=== PATIENT | female | born 1970 | race Caucasian/White ===

== ENCOUNTER 2019-09-04 09:47 | Outpatient (CLI) | payer MEDICARE, MEDICAID, SELFPAY ==
--- NOTE | 2019-09-04 | US_ITS ---
WS: [id number] Complete ABDOMINAL ULTRASOUND HISTORY: LUQ ABDOMINAL PAIN COMPARISON: 07/12/2017 Liver: 22 cm in length. Liver significantly enlarged with diffuse coarsened echotexture and attenuati on. No bile duct dilatation. Gallbladder: Prior cholecystectomy. Pancreas: Poorly visualized. CBD: Not visualized. Right kidney: 8.5 cm x 4.6 cm x 4.3 cm. Atrophic kidney. Diffuse cortical thinning with no hydroneph rosis or mass. Left kidney: 9.3 cm x 4.0 cm x 3.7 cm. Mild atrophy and diffuse cortical thinning. Spleen: Normal size and echogenicity. Aorta and IVC are not visualized. No ascites. US/US abdomen complete* [id number] IMPRESSION: 1. Extremely limited evaluation of the abdomen. 2. Severe hepatomegaly and hepatic steatosis. 3. Prior cholecystectomy. 4. Mild bilateral renal atrophy and cortical thinning.
== END 2019-09-04 09:48 | disposition home or self-care (01) ==
PROVIDERS: Family Provider Family Medicine; PCP Family Medicine; Visit Provider Family Medicine
DX: Z01.89 Encounter for other specified special examinations (principal)

== ENCOUNTER 2019-09-14 06:36 | Emergency (ER) | payer MEDICARE, MEDICAID, SELFPAY ==
[2019-09-14] VITALS (8 sets, daily range): BP systolic 147–174; BP diastolic 76–104; PULSE 85–92; RESP 16–20; TEMP 37; O2SAT 99–100; BMI 35.6
--- NOTE | 2019-09-14 07:22 | ED_ITS ---
Entered by Haleigh Low, acting as scribe for Sep 14, 2019 06:36 HPI - Anxiety General: Chief Complaint: Anxiety Stated Complaint: cough, sob Time Seen by Provider: 09/14/19 07:01 Source: patient and family Mode of arrival: ambulatory Limitations: no limitations History of Present Illness: HPI narrative: 49 female who presents from nephrology clinic. Due to coronavirus precautions patient was going to be required to wear a mask while she was receiving a run of dialysis. She has severe claustrophobia and states she cannot wear a mask. She refused they sent her to the emergency room. She is wanting to be admitted so that she can have her dialysis done while she is at the hospital and not have to wear a mask she has had a bit of a cough but no fever cough is been nonproductive. She denies any sweats or chills denies any nausea vomiting or diarrhea. She has been a little short of breath as well. This been going on for the last couple of days. MD complaint: anxiety Onset (ago): day(s) Symptoms: dyspnea Quality: constant Place: home Associated symptoms: Reports short of breath and other (cough); Deny chest pain, chills, fever(s), malaise, nausea or vomiting Review of Systems General: Reports: 10 or more systems reviewed and unremarkable except in HPI and below Const: Denies: fever, chills, body aches, change in appetite, fatigue or malaise ENMT: Denies: throat pain, ear pain, nasal discharge or nasal congestion Card: Denies: chest pain, edema, shortness of breath on exertion or shortness of breath when lying down Resp: Reports: shortness of breath and productive cough GI: Denies: abdominal pain, nausea, vomiting, vomiting blood, coffee grounds in vomit, diarrhea, constipation, bloating, blood in stool or black tarry stool : Denies: flank pain, difficulty urinating, painful urination, urinary frequency or urinary urgency Skin/Breast: Denies: rash or itching PFSH ED PFSH: Social History Smoking and tobacco status: never smoked Physical Exam Const: COMMON NORMALS: no apparent distress GENERAL APPEARANCE: cooperative and comfortable ORIENTATION/CONSCIOUSNESS: Yes awake, Yes oriented to person, Yes oriented to place and Yes oriented to time HENMT: COMMON NORMALS: normocephalic, head/scalp atraumatic, hearing grossly normal bilaterally, external ears normal, EAC's normal, TM's normal bilaterally, nasal mucous membranes and turbinates normal, moist oral mucous membranes and oropharynx normal HEAD & SCALP: normocephalic and atraumatic NOSE: nasal mucous membranes and turbinates normal EXTERNAL EAR: Yes external ears normal EXTERNAL AUDITORY CANAL: EAC's normal TYMPANIC MEMBRANE: TM's normal bilaterally Eye: COMMON NORMALS: PERRL, EOMs intact bilaterally, conjunctivae normal and no scleral icterus CONJUNCTIVA: Yes conjunctivae normal PUPIL: Yes PERRL Neck/C-Spine: COMMON NORMALS: full ROM, no lymphadenopathy, supple and no JVD Lymph: LYMPHATIC: no lymphadenopathy noted and no lymphedema noted Cardio: COMMON NORMALS: no JVD, regular rate, regular rhythm and no murmurs RATE: regular rate RHYTHM: regular rhythm GI: COMMON NORMALS: soft to palpation and no hepatosplenomegaly AUSCULTATION: Yes normoactive bowel sounds PALPATION: Yes soft, No tender, No guarding and Yes no hepatosplenomegaly Extremity: COMMON NORMALS: normal to inspection, normal capillary refill, no clubbing, cyanosis or edema, no calf tenderness and no pedal edema Neuro: SENSORIUM/ORIENTATION: Yes oriented to person, Yes oriented to place and Yes oriented to time Skin: COMMON NORMALS: no rashes or lesions noted GENERAL SKIN EXAM: no rashes or lesions noted Course ED course: Chest x-ray is essentially unremarkable. The rest of her exam is normal she does probably have some viral upper respiratory infection. Treat symptomatically she respiratory casanova she has no compromise at this time does not require any sort of treatment or intervention. Do recommend that she use anxiety meds to get through her dialysis. Give her prescription for Ativan 1 mg p.o. every 8 hours as needed she should take about 1/2-hour prior to run of dialysis. Return to the dialysis clinic to complete today's dialysis run. Vital Signs: Vital signs: Vital Signs Temperature 98.6 F 09/14/19 07:00 Pulse Rate 86 09/14/19 09:11 Respiratory Rate 16 09/14/19 09:11 Blood Pressure 157/87 09/14/19 09:11 Pulse Oximetry 99 09/14/19 09:11 MDM - Anxiety Lab Data: Labs: Lab Results 09/14/19 09/14/1920 Range/Units 07:23 07:47 08:38 WBC 4.5 (4.0-10.0) 10^3/ uL RBC 3.18 L (4.1-5.3) 10^6/u L Hgb 10.4 L (11.5-15.3) g/dL Hct 33.3 L (37.0-47.0) % MCV 104.7 H (81-99) fL MCH 32.7 (28.0-34.0) pg MCHC 31.2 (30.0-36.0) g/dL RDW 13.6 (12.1-15.1) % Plt Count 179 (130-400) 10^3/c mm MPV 10.3 (7.4-10.4) fL Neut % (Auto) 48.0 % Lymph % (Auto) 37.4 % [place] % (Auto) 12.6 % Eos % (Auto) 0.2 % Baso % (Auto) 1.1 % Neut # (Auto) 2.2 (1.8-7.7) 10^3/u L Lymph # (Auto) 1.7 (0.8-4.8) 10^3/u L [place] # (Auto) 0.6 (0.2-0.9) 10^3/u L Eos # (Auto) 0.0 (0.0-0.8) 10^3/u L Baso # (Auto) 0.1 (0.0-0.1) 10^3/u L Nucleated RBC % (a uto) 0 % Nucleated RBCs # 0.0 /100WBC Sodium 139 (136-145) mmol/L Potassium 4.6 (3.5-5.1) mmol/L Chloride 101 (98-107) mmol/L Carbon Dioxide 24 (22-29) mmol/L Anion Gap 18.6 (5-19) BUN 20 (6-20) mg/dL Creatinine 4.2 H (0.5-0.9) mg/dL GFR Calculation 11.3 L (90-130) mL/min Glucose 109 (65-115) mg/dL Calculated Osmolal ity 285 (285-295) mOsm/k g Calcium 9.4 (8.5-10.5) mg/dL Influenza Type A A g Negative (Negative) POC Influenza B Ag Negative (Negative) Discharge Plan Discharge Patient Disposition: Home, Self-Care Clinical Impression: Viral URI, Anxiety, Claustrophobia Condition: Stable Prescriptions: No Action Valium 10 mg tablet 10 mg PO DAILY PRN (Reason: anxiety) Qty: 10 RF: 0 Discharge Orders: Discharge Order (Routine); Ordered 09/14/19 Ordered By: Papo Jenkins Referrals: Reese Griggs MD [Primary Care Provider] - Discharge Diet: Usual diet Discharge Activity: Resume usual activity Discharge Date/Time: 09/14/19 09:24 Coding Level of Care Code 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
--- NOTE | 2019-09-14 07:25 | XR_ITS ---
WS: [id number] Portable AP upright chest, 09/14/2019 Clinical Data: dyspnea/cough Comparison: Portable chest, 07/10/2018. Findings: No nodules, masses or effusions are seen. The heart is normal. The pulmonary vascularity is not increased. No pneumonia or pneumothorax is seen. XR/XR chest 1V portable [id number] Impression: Negative chest.
--- NOTE | 2019-09-14 07:29 | PC.NURSE ---
XR performed at bedside
[2019-09-14 08:00] LABS: Influenza A by IFA Negative (Negative); Influenza B by IFA Negative (Negative)
[2019-09-14 08:27] LABS: Anion Gap 18.6 (5-19); Blood Urea Nitrogen 20 mg/dL (6-20); Calcium 9.4 mg/dL (8.5-10.5); Carbon Dioxide 24 mmol/L (22-29); Chloride 101 mmol/L (98-107); Glomerular Filtration Rate 11.3 mL/min (90-130); Glucose 109 mg/dL (65-115); Osmolality Calculated 285 mOsm/kg (285-295); Potassium 4.6 mmol/L (3.5-5.1); Sodium 139 mmol/L (136-145)
[2019-09-14 08:44] LABS: Basophils # 0.1 10^3/uL (0.0-0.1); Basophils % 1.1 %; Eosinophils % 0.2 %; Hematocrit 33.3 % (37.0-47.0); Hemoglobin 10.4 g/dL (11.5-15.3); Lymphocytes # 1.7 10^3/uL (0.8-4.8); Lymphocytes % 37.4 %; Mean Corpuscular HGB Conc 31.2 g/dL (30.0-36.0); Mean Corpuscular Hemoglobin 32.7 pg (28.0-34.0); Mean Corpuscular Volume 104.7 fL (81-99); Mean Platelet Volume 10.3 fL (7.4-10.4); Monocytes # 0.6 10^3/uL (0.2-0.9); Monocytes % 12.6 %; Neutrophils # 2.2 10^3/uL (1.8-7.7); Nucleated Red Blood Cells % 0 %; Platelet Count 179 10^3/cmm (130-400); Red Blood Count 3.18 10^6/uL (4.1-5.3); Red Cell Distribution Width 13.6 % (12.1-15.1); White Blood Count 4.5 10^3/uL (4.0-10.0)
== END 2019-09-14 09:24 | disposition home or self-care (01) ==
PROVIDERS: Emergency Provider Family Medicine; Family Provider Family Medicine; PCP Family Medicine
DX: J06.9 Acute upper respiratory infection, unspecified (principal); F41.9 Anxiety disorder, unspecified; F40.240 Claustrophobia
CPT/HCPCS: 12345; 36415; 71045; 80048; 85025; 87804; 99282; 99283

== ENCOUNTER 2019-09-16 19:16 | Emergency (ER) | payer MEDICARE, MEDICAID, SELFPAY ==
[2019-09-16 19:29] VITALS: BP 139/79; PULSE 107; RESP 18; TEMP 36.9; O2SAT 99; BMI 35.6
--- NOTE | 2019-09-16 19:49 | XR_ITS ---
WS: [id number] XR chest 1V portable [id number] REASON FOR EXAM: cough FINDINGS: The lower lungs show increased peribronchial markings 1 observed from previous exam of 2019. The heart is not enlarged. The hilum and apices normal. XR/XR chest 1V portable [id number] IMPRESSION: Marked increased congestion lower lungs consistent with acute bronchitis.
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
--- NOTE | 2019-09-16 19:51 | ECG_ITS ---
Measurements Intervals [place] Rate: 95 P: 59 MT: 164 QRS: 32 QRSD: 105 T: 11 QT: 345 QTc: 435 SINUS RHYTHM Compared to ECG 10/22/2018 21:33:21 Sinus tachycardia no longer present Electronically Signed On 09-17-2019 17:21:09 CDT by Steve George M.D. [id number] f
[2019-09-16 19:53] VITALS: BP 140/98; PULSE 101; RESP 18; O2SAT 97
[2019-09-16 20:10] LABS: Basophils # 0.1 10^3/uL (0.0-0.1); Eosinophils % 0.3 %; Hematocrit 31.1 % (37.0-47.0); Hemoglobin 9.9 g/dL (11.5-15.3); Lymphocytes # 1.8 10^3/uL (0.8-4.8); Lymphocytes % 29.9 %; Mean Corpuscular HGB Conc 31.8 g/dL (30.0-36.0); Mean Corpuscular Hemoglobin 32.4 pg (28.0-34.0); Mean Corpuscular Volume 101.6 fL (81-99); Mean Platelet Volume 9.9 fL (7.4-10.4); Monocytes # 0.6 10^3/uL (0.2-0.9); Monocytes % 9.1 %; Neutrophils # 3.6 10^3/uL (1.8-7.7); Neutrophils % 59.2 %; Nucleated Red Blood Cells % 0 %; Platelet Count 184 10^3/cmm (130-400); Red Blood Count 3.06 10^6/uL (4.1-5.3); Red Cell Distribution Width 13.4 % (12.1-15.1); White Blood Count 6.1 10^3/uL (4.0-10.0)
[2019-09-16 20:20] VITALS: BP 133/86; RESP 16; O2SAT 98
[2019-09-16 20:31] LABS: Alanine Aminotransferase 58 U/L (0-33); Albumin Level 4.4 g/dL (3.5-5.2); Alkaline Phosphatase 83 IU/L (35-105); Aspartate Amino Transferase 52 U/L (0-32); Blood Urea Nitrogen 26 mg/dL (6-20); Calcium 9.4 mg/dL (8.5-10.5); Carbon Dioxide 18 mmol/L (22-29); Chloride 109 mmol/L (98-107); Globulin 2.7 g/dL (1.3-4.6); Glomerular Filtration Rate 9.9 mL/min (90-130); Glucose 74 mg/dL (65-115); Osmolality Calculated 286 mOsm/kg (285-295); Sodium 140 mmol/L (136-145); Total Bilirubin 0.3 mg/dL (0.15-1.2); Total Protein 7.1 g/dL (6.6-8.7)
[2019-09-16] MEDS: diazePAM 5 mg Tablet 10 MG PO (20:54)
[2019-09-16 20:55] VITALS: BP 117/94; PULSE 99; RESP 15; O2SAT 99
== END 2019-09-16 20:56 | disposition home or self-care (01) ==
PROVIDERS: Emergency Provider Nurse Practitioner Family; Family Provider Family Medicine; PCP Family Medicine
DX: F41.9 Anxiety disorder, unspecified (principal); Z99.2 Dependence on renal dialysis
CPT/HCPCS: 12345; 71045; 80053; 85025; 93005; 99282; 99283

== ENCOUNTER 2020-08-20 07:12 | Emergency (ER) | payer MEDICARE, MEDICAID, SELFPAY ==
[2020-08-20] VITALS (29 sets, daily range): BP systolic 122–150; BP diastolic 68–86; PULSE 88–101; RESP 16–22; O2SAT 90–100; BMI 32.9
--- NOTE | 2020-08-20 07:14 | CT_ITS ---
WS: [id number] CT HEAD NONCONTRAST HISTORY: seizure with unresponsive TECHNIQUE: Contiguous axial imaging performed through the brain in 2.5 mm imaging. Bone and soft tiss ue windows. Sagittal and coronal reformats reviewed. All CT scans at [facility] use at ast one of these dose optimization techniques: automated exposure control; mA and/or kV adjustment pe r patient size (includes targeted exams where dose is matched to clinical indication); or iterative r econstruction. DLP: 416.49 mGy.cm COMPARISON: 12/26/2017 No acute intracranial hemorrhage, midline shift or mass effect. No atrophy or prior infarcts or herniation. Ventricles: Normal size with no hydrocephalus. Paranasal sinuses: As visualized are clear. Mastoid air cells: Well pneumatized. Calvarium and scalp: Skull is intact with no soft tissue edema or swelling. CT/CT head wo con* [id number] IMPRESSION: Negative head CT.
--- NOTE | 2020-08-20 07:15 | XR_ITS ---
WS: [id number] PORTABLE CHEST HISTORY: syncope COMPARISON: 09/16/2019 Nasogastric and endotracheal tubes are in good position. There is severe bilateral scattered opacifications and pulmonary congestion. Lung volumes are decreas ed. No pleural effusion or pneumothorax. Cardiac size: Mildly enlarged cardiac silhouette. Mediastinum/Aorta: Mild atherosclerosis aorta. No osseous abnormality seen. XR/XR chest 1V portable [id number] IMPRESSION: 1. Satisfactory positioning of the endotracheal and nasogastric tubes. 2. Severe bilateral opacifications. Favor pulmonary edema but pneumonia is als o within the differential.
--- NOTE | 2020-08-20 07:16 | ECG_ITS ---
[facility] Test Date: 2020-08-20 Pat Name: Mercy Payne Department: Room: Gender: Female Literacy Tutor: : 1970 Requested By: Mary Cisneros Order Number: [id number] Ary MD: Chintan Landin M.D. Measurements Intervals [place] Rate: 102 P: 44 MD: 164 QRS: 53 QRSD: 125 T: -31 QT: 349 QTc: 456 Interpretive Statements SINUS TACHYCARDIA MODERATE INTRAVENTRICULAR CONDUCTION DELAY [110+ ms QRS DURATION] NONSPECIFIC ST ELEVATION [0.05+ mV ST ELEVATION] ABNORMAL QRS-T ANGLE [QRS-T AXIS DIFFERENCE > 60] Compared to ECG 09/16/2019 20:17:39 Intraventricular conduction delay now present ST (T wave) deviation now present Sinus rhythm no longer present Electronically Signed On 08-21-2020 16:53:28 CONSUMER ANALYST by Chintan Landin M.D. [id number] f
[2020-08-20 07:45] LABS: Basophils # 0.1 10^3/uL (0.0-0.1); Basophils % 0.6 %; Eosinophils % 0.1 %; Hematocrit 33.6 % (37.0-47.0); Hemoglobin 9.7 g/dL (11.5-15.3); Lymphocytes # 1.9 10^3/uL (0.8-4.8); Lymphocytes % 11.1 %; Mean Corpuscular HGB Conc 28.9 g/dL (30.0-36.0); Mean Corpuscular Hemoglobin 32.8 pg (28.0-34.0); Mean Corpuscular Volume 113.5 fL (81-99); Mean Platelet Volume 10.2 fL (7.4-10.4); Monocytes # 1.1 10^3/uL (0.2-0.9); Monocytes % 6.3 %; Neutrophils # 13.47 10^3/uL (1.8-7.7); Neutrophils % 77.1 %; Nucleated Red Blood Cells % 0 %; Platelet Count 206 10^3/cmm (130-400); Red Blood Count 2.96 10^6/uL (4.1-5.3); White Blood Count 17.4 10^3/uL (4.0-10.0)
[2020-08-20] MEDS: midazolam 1 mg/mL INJ 2 mL 2 MG IVP (07:45)
[2020-08-20 07:48] LABS: ABG PCO2 64.4 mmHg (35-45); ABG PH Result 7.01 (7.35-7.45); Alveolar-Arterial Oxygen Gradi 32.6 mmHg (5-10); Arterial Blood Gas Hematocrit 30.2 % (37-47); Base Excess ABG -14.5 mmol/L (-2.0-2.0); Blood Gas Allen Test Pos; Blood Gas Operator Identificat glc; Blood Gas Sample Site Radial, right; Blood Gas Sample Type Arterial; Blood Gas Tidal Volume 0.45; Carboxyhemoglobin 1.6 %THgb (0.4-20.1); HCO3 ABG 16.4 mmol/L (22-26); HGB O2 Sat 96.8 % (95-100); Ionized Calcium Level - ABG 1.2 mmol/L (1.1-1.4); Methemoglobin 1.4 % (0.4-1.5); Oxygen Device VENT; Oxygen Saturation ABG 99.8; Potassium Level - ABG 5.4 mmol/L (3.5-5.0); Total Hemoglobin 9.9 g/dL (12-16)
[2020-08-20 07:52] LABS: HCG, Serum Qual Negative (Negative); Ketone (Acetest) Serum Negative (Negative)
[2020-08-20 07:59] LABS: Troponin(5th) Baseline 13 ng/L (0-10)
[2020-08-20 08:05] LABS: SARS Covid-2 Antigen Negative (Negative)
[2020-08-20] MEDS: clindamycin 600 MG/50 ML PREMIX 100 MG IV (08:07)
[2020-08-20] MEDS: aztreonam 2,000 MG in sodium chloride 0.9% (plus) 100 ML 200 MG IV (08:10)
[2020-08-20 08:19] LABS: Ionized Calcium 1.2 mmol/L (1.1-1.4)
--- NOTE | 2020-08-20 08:36 | CT_ITS ---
WS: [id number] CT CHEST ANGIOGRAPHY WITH REFORMATS HISTORY: Respiratory failure/suspected COVID TECHNIQUE: Contiguous axial images are obtained through the chest during arterial injection of intrav enous contrast. Images are reconstructed to evaluate the pulmonary arteries. MIP imaging also reviewe d. All CT scans at [facility] use at least one of these dose optimization techniques: aut omated exposure control; mA and/or kV adjustment per patient size (includes targeted exams where dose is matched to clinical indication); or iterative reconstruction. CONTRAST: Visipaque 320; 95 mL IV. DLP: 965.32 mGy.cm COMPARISON: 07/09/2017. There is a significant amount of artifact from the patient's monitoring devices through the thorax. T here is also motion artifact and soft tissue artifact. Patient is intubated. Nasogastric tube is present with tip extending below the diaphragm. Pulmonary a rtery size is normal. No pulmonary embolism through the majority of the segmental branches. Mild athe rosclerosis aorta. Mild enlargement of the heart chambers. No pericardial or pleural effusions. Bilateral scattered pulmonary opacifications. Some of these opacifications are groundglass and others are more consolidated. Mildly enlarged nodular LEFT thyroid lobe. Similar to the prior examinations. Visualized liver is enlarged with low attenuation suggesting hepatic congestion. No adrenal mass. CT/CT angio chest PE protcl [id number] IMPRESSION: 1. No central pulmonary embolism. 2. Bilateral areas of groundglass attenuation and more dense consolidations. T his pattern can be seen with Covid 19, pneumonia and edema and pneumonitis. 3. Mild enlargement of the heart. 4. Endotracheal nasogastric tubes in good position.
[2020-08-20 08:37] LABS: Lactic Sepsis W/Reflex 1.1 mmol/L (0.5-2.2)
[2020-08-20] MEDS: midazolam 1 mg/mL INJ 2 mL 2 MG (08:39)
--- NOTE | 2020-08-20 08:46 | ED_ITS ---
HPI - General Adult General: Chief complaint: Cardiac Arrest/CPR Stated complaint: CODE Time Seen by Provider: 08/20/20 08:22 History of Present Illness: HPI narrative: 50-year-old female comes in via EMS status post witnessed arrest. In the field when they arrived she was tripoding in severe respiratory distress they witnessed arrest found her in [place] CPR was initiated she received 2 rounds of epinephrine at which time she achieved ROSC. Patient is nonresponsive. On arrival here she had an I-gel in place which was immediately replaced with an ET tube. She also had a left tibial IO. Pt is nonresponsive and intially did not require any sedration for intubation or ventilation. Onset (ago): minute(s) Severity: severe Treatments prior to arrival: other (CPR, epinephrine x2, mechanical ventilation via eye gel.) Review of Systems General: Reports: ROS unobtainable due to endotracheal tube [facility] ED PFSH: Medical History (Updated 08/21/20 @ 17:17 by Papo Jenkins DO) End stage renal disease Social History Smoking and tobacco status: never smoked Physical Exam HENMT: COMMON NORMALS: normocephalic and atraumatic HEAD & SCALP: normocephalic and atraumatic Resp: AUSCULTATION: rhonchi OTHER: No respiratory effort initially. Patient was given mild sedation later but has no spontaneous operations or actions. Cardio: COMMON NORMALS: regular rhythm RATE: tachycardic RHYTHM: regular rhythm GI: COMMON NORMALS: Soft to palpation and No hepatosplenomegaly present AUSCULTATION: Yes normoactive bowel sounds PALPATION: Yes Soft to palpation, No Tenderness to palpation present (GI), No Guarding due to palpation present (GI) and Yes No hepatosplenomegaly present Extremity: COMMON NORMALS: normal to inspection Procedures Central Line Placement Right SC: Patient Placed on Monitor/Pulse Ox: Yes MD Prep: mask, gown and gloves Central Line Prep: Chlorhexidine scrub Ultrasound Used for Placement: Yes Central Line Lumen Inserted: triple Post Procedure: sutured in place, good blood return, all ports aspirated, flushed, capped and sterile dressing applied Post Procedure X-Ray: tip of catheter in good position, no pneumothorax seen and other (CTA chest - in good position on the setter cold rolling machine and the CT images) Patient Tolerated Procedure: well Complications: none Intubation sedative: none Laryngoscope: fiber optic video scope Assist Device Used: fiber optic device ET Tube Size: 8.5 ET Tube Uncuffed: No Tube Secured Depth (cm): 24 Tube Secured Location: teeth Tube Placement Confirmation: visualized tube passing through cords, equal breath sounds bilaterally, no breath sounds over epigastrium and confirmation by cap nometry Patient Tolerated Procedure: well Intubation Complications: none Course Vital Signs: Vital signs: Vital Signs Pulse Rate 88 08/20/20 15:35 Respiratory Rate 20 H 08/20/20 15:35 Blood Pressure 127/68 08/20/20 15:35 Pulse Oximetry 100 08/20/20 15:35 MDM - General Adult MDM Narrative: Medical decision making narrative: Patient appears to have bilateral pneumonia her CTA is very suspicious for Covid pneumonitis. In addition to that she is hyperkalemic and has mild fluid overload she is due for dialysis today. We have instituted medications for her hyperkalemia. We do not have any available ICU beds per the supervisor cook house she will have to be transferred. Her ABGs have improved slightly on the second ABG since she was started on the ventilator. Cultures and antibiotics have been started blood pressure is stable achieving adequate sedation of the low-dose fentanyl and Versed. Lab Data: Labs: Lab Results 08/20/20 08/20/20 08/20/20 Range/Units 07:30 07:31 07:31 WBC 17.4 H (4.0-10.0) 10^3/ uL RBC 2.96 L (4.1-5.3) 10^6/u L Hgb 9.7 L (11.5-15.3) g/dL Hct 33.6 L (37.0-47.0) % MCV 113.5 H (81-99) fL MCH 32.8 (28.0-34.0) pg MCHC 28.9 L (30.0-36.0) g/dL RDW 13.0 (12.1-15.1) % Plt Count 206 (130-400) 10^3/c mm MPV 10.2 (7.4-10.4) fL Neut % (Auto) 77.1 % Lymph % (Auto) 11.1 % [place] % (Auto) 6.3 % Eos % (Auto) 0.1 % Baso % (Auto) 0.6 % Neut # (Auto) 13.47 H (1.8-7.7) 10^3/u L Lymph # (Auto) 1.9 (0.8-4.8) 10^3/u L [place] # (Auto) 1.1 H (0.2-0.9) 10^3/u L Eos # (Auto) 0.0 (0.0-0.8) 10^3/u L Baso # (Auto) 0.1 (0.0-0.1) 10^3/u L Nucleated RBC % (a uto) 0 % Nucleated RBCs # 0.0 /100WBC PT (12.1-14.9) SECO NDS INR (0.8-1.2) APTT (23.9-36.7) SECO NDS Fibrinogen (174-498) mg/dL D-Dimer (0-0.59) ug/mIFE U Specimen Type Arterial Sample Site Radial, right ABG pH 7.01 L* (7.35-7.45) ABG pCO2 64.4 H* (35-45) mmHg ABG pO2 385.0 H (80.0-100.0) mmH g ABG HCO3 16.4 L (22-26) mmol/L ABG O2 Saturation 99.8 ABG Base Excess -14.5 L (-2.0-2.0) mmol/ L Clint Test Pos A-a O2 Gradient 32.6 H (5-10) mmHg Hematocrit 30.2 L (37-47) % Hgb O2 Saturation 96.8 (95-100) % Carboxyhemoglobin 1.6 (0.4-20.1) %THgb Methemoglobin 1.4 (0.4-1.5) % Total Hemoglobin 9.9 L (12-16) g/dL Sodium 140.0 134 L (131-143) mmol/L Potassium 5.4 H 6.0 H (3.5-5.0) mmol/L Glucose 261.0 H 224 H (70-115) mg/dL Ionized Calcium 1.2 (1.1-1.4) mmol/L O2 Delivery Device Vent FiO2 100.0 % Tidal Volume 0.45 PEEP 8.0 cmH20 [employer] Lube Technician ID glc Chloride 106 (98-107) mmol/L Carbon Dioxide 19 L (22-29) mmol/L Anion Gap 15.0 (5-19) BUN 31 H (6-20) mg/dL Creatinine 4.7 H (0.5-0.9) mg/dL GFR Calculation 9.9 L (90-130) mL/min Calculated Osmolal ity 292 (285-295) mOsm/k g Lactic Acid (0.5-2.2) mmol/L Calcium 8.3 L (8.5-10.5) mg/dL Ionized Calcium Me as 1.2 (1.1-1.4) mmol/L Phosphorus 7.6 H (2.5-4.5) mg/dL Magnesium 1.8 (1.7-2.3) mg/dL Total Bilirubin 0.6 (0.15-1.2) mg/dL AST 216 H (0-32) U/L ALT 179 H (0-33) U/L Alkaline Phosphata se 87 (35-105) IU/L Creatine Kinase (26-192) U/L Troponin T Baselin e (0-10) ng/L Troponin T 120 Min upper [place] (0-10) ng/L Delta Troponin T (0-10) ABS# Troponin T Hi Sens 6Hr (0-10) ng/L Troponin T Hi Sens 6Hr Delta (0-12) ng/L Total Protein 6.6 (6.6-8.7) g/dL Albumin 4.0 (3.5-5.2) g/dL Globulin 2.6 (1.3-4.6) g/dL HCG, Qual (Negative) Urine Color (Yellow) Urine Appearance (CLEAR) Urine pH (5-7) Ur Specific Gravit y (1.005-1.030) Urine Protein (Negative) Urine Glucose (UA) (Normal) Urine Ketones (Negative) Urine Blood (Negative) Urine Nitrate (Negative) Urine Bilirubin (Negative) Urine Urobilinogen (Negative) mg/dL Ur Leukocyte Gabbie ase (Negative) Urine RBC (0-2) /hpf Urine WBC (0-5) /hpf Ur Squamous Epith Cells (0-5) /hpf Amorphous Sediment Urine Bacteria (NONE) /hpf Urine Opiates Scre en (Negative) ng/mL Ur Barbiturates Sc reen (Negative) ng/mL Ur Phencyclidine S crn (Negative) ng/mL Ur Amphetamines Sc reen (Negative) ng/mL U Benzodiazepines Scrn (Negative) ng/mL Urine Cocaine Scre en (Negative) ng/mL U Marijuana (THC) Screen (Negative) ng/mL Serum Ketones (Negative) Nasal/Oral COVID-1 9 PCR SARS-CoV-2 Ag (Rap id) (Negative) 08/20/20 08/20/20 08/20/20 Range/Units 07:31 07:31 07:31 WBC (4.0-10.0) 10^3/ uL RBC (4.1-5.3) 10^6/u L Hgb (11.5-15.3) g/dL Hct (37.0-47.0) % MCV (81-99) fL MCH (28.0-34.0) pg MCHC (30.0-36.0) g/dL RDW (12.1-15.1) % Plt Count (130-400) 10^3/c mm MPV (7.4-10.4) fL Neut % (Auto) % Lymph % (Auto) % [place] % (Auto) % Eos % (Auto) % Baso % (Auto) % Neut # (Auto) (1.8-7.7) 10^3/u L Lymph # (Auto) (0.8-4.8) 10^3/u L [place] # (Auto) (0.2-0.9) 10^3/u L Eos # (Auto) (0.0-0.8) 10^3/u L Baso # (Auto) (0.0-0.1) 10^3/u L Nucleated RBC % (a uto) % Nucleated RBCs # /100WBC PT (12.1-14.9) SECO NDS INR (0.8-1.2) APTT (23.9-36.7) SECO NDS Fibrinogen (174-498) mg/dL D-Dimer (0-0.59) ug/mIFE U Specimen Type Sample Site ABG pH (7.35-7.45) ABG pCO2 (35-45) mmHg ABG pO2 (80.0-100.0) mmH g ABG HCO3 (22-26) mmol/L ABG O2 Saturation ABG Base Excess (-2.0-2.0) mmol/ L Clint Test A-a O2 Gradient (5-10) mmHg Hematocrit (37-47) % Hgb O2 Saturation (95-100) % Carboxyhemoglobin (0.4-20.1) %THgb Methemoglobin (0.4-1.5) % Total Hemoglobin (12-16) g/dL Sodium (131-143) mmol/L Potassium (3.5-5.0) mmol/L Glucose (70-115) mg/dL Ionized Calcium (1.1-1.4) mmol/L O2 Delivery Device FiO2 % Tidal Volume PEEP cmH20 [employer] Lube Technician ID Chloride (98-107) mmol/L Carbon Dioxide (22-29) mmol/L Anion Gap (5-19) BUN (6-20) mg/dL Creatinine (0.5-0.9) mg/dL GFR Calculation (90-130) mL/min Calculated Osmolal ity (285-295) mOsm/k g Lactic Acid (0.5-2.2) mmol/L Calcium (8.5-10.5) mg/dL Ionized Calcium Me as (1.1-1.4) mmol/L Phosphorus (2.5-4.5) mg/dL Magnesium (1.7-2.3) mg/dL Total Bilirubin (0.15-1.2) mg/dL AST (0-32) U/L ALT (0-33) U/L Alkaline Phosphata se (35-105) IU/L Creatine Kinase (26-192) U/L Troponin T Baselin e 13 H (0-10) ng/L Troponin T 120 Min upper [place] (0-10) ng/L Delta Troponin T (0-10) ABS# Troponin T Hi Sens 6Hr (0-10) ng/L Troponin T Hi Sens 6Hr Delta (0-12) ng/L Total Protein (6.6-8.7) g/dL Albumin (3.5-5.2) g/dL Globulin (1.3-4.6) g/dL HCG, Qual Negative (Negative) Urine Color (Yellow) Urine Appearance (CLEAR) Urine pH (5-7) Ur Specific Gravit y (1.005-1.030) Urine Protein (Negative) Urine Glucose (UA) (Normal) Urine Ketones (Negative) Urine Blood (Negative) Urine Nitrate (Negative) Urine Bilirubin (Negative) Urine Urobilinogen (Negative) mg/dL Ur Leukocyte Gabbie ase (Negative) Urine RBC (0-2) /hpf Urine WBC (0-5) /hpf Ur Squamous Epith Cells (0-5) /hpf Amorphous Sediment Urine Bacteria (NONE) /hpf Urine Opiates Scre en (Negative) ng/mL Ur Barbiturates Sc reen (Negative) ng/mL Ur Phencyclidine S crn (Negative) ng/mL Ur Amphetamines Sc reen (Negative) ng/mL U Benzodiazepines Scrn (Negative) ng/mL Urine Cocaine Scre en (Negative) ng/mL U Marijuana (THC) Screen (Negative) ng/mL Serum Ketones Negative (Negative) Nasal/Oral COVID-1 9 PCR SARS-CoV-2 Ag (Rap id) (Negative) 08/20/20 08/20/20 08/20/20 Range/Units 07:31 07:31 07:39 WBC (4.0-10.0) 10^3/ uL RBC (4.1-5.3) 10^6/u L Hgb (11.5-15.3) g/dL Hct (37.0-47.0) % MCV (81-99) fL MCH (28.0-34.0) pg MCHC (30.0-36.0) g/dL RDW (12.1-15.1) % Plt Count (130-400) 10^3/c mm MPV (7.4-10.4) fL Neut % (Auto) % Lymph % (Auto) % [place] % (Auto) % Eos % (Auto) % Baso % (Auto) % Neut # (Auto) (1.8-7.7) 10^3/u L Lymph # (Auto) (0.8-4.8) 10^3/u L [place] # (Auto) (0.2-0.9) 10^3/u L Eos # (Auto) (0.0-0.8) 10^3/u L Baso # (Auto) (0.0-0.1) 10^3/u L Nucleated RBC % (a uto) % Nucleated RBCs # /100WBC PT (12.1-14.9) SECO NDS INR (0.8-1.2) APTT (23.9-36.7) SECO NDS Fibrinogen (174-498) mg/dL D-Dimer (0-0.59) ug/mIFE U Specimen Type Sample Site ABG pH (7.35-7.45) ABG pCO2 (35-45) mmHg ABG pO2 (80.0-100.0) mmH g ABG HCO3 (22-26) mmol/L ABG O2 Saturation ABG Base Excess (-2.0-2.0) mmol/ L Clint Test A-a O2 Gradient (5-10) mmHg Hematocrit (37-47) % Hgb O2 Saturation (95-100) % Carboxyhemoglobin (0.4-20.1) %THgb Methemoglobin (0.4-1.5) % Total Hemoglobin (12-16) g/dL Sodium (131-143) mmol/L Potassium (3.5-5.0) mmol/L Glucose (70-115) mg/dL Ionized Calcium (1.1-1.4) mmol/L O2 Delivery Device FiO2 % Tidal Volume PEEP cmH20 [employer] L[employer] Technician ID Chloride (98-107) mmol/L Carbon Dioxide (22-29) mmol/L Anion Gap (5-19) BUN (6-20) mg/dL Creatinine (0.5-0.9) mg/dL GFR Calculation (90-130) mL/min Calculated Osmolal ity (285-295) mOsm/k g Lactic Acid (0.5-2.2) mmol/L Calcium (8.5-10.5) mg/dL Ionized Calcium Me as (1.1-1.4) mmol/L Phosphorus (2.5-4.5) mg/dL Magnesium (1.7-2.3) mg/dL Total Bilirubin (0.15-1.2) mg/dL AST (0-32) U/L ALT (0-33) U/L Alkaline Phosphata se (35-105) IU/L Creatine Kinase 111 (26-192) U/L Troponin T Baselin e (0-10) ng/L Troponin T 120 Min upper [place] (0-10) ng/L Delta Troponin T (0-10) ABS# Troponin T Hi Sens 6Hr (0-10) ng/L Troponin T Hi Sens 6Hr Delta (0-12) ng/L Total Protein (6.6-8.7) g/dL Albumin (3.5-5.2) g/dL Globulin (1.3-4.6) g/dL HCG, Qual (Negative) Urine Color (Yellow) Urine Appearance (CLEAR) Urine pH (5-7) Ur Specific Gravit y (1.005-1.030) Urine Protein (Negative) Urine Glucose (UA) (Normal) Urine Ketones (Negative) Urine Blood (Negative) Urine Nitrate (Negative) Urine Bilirubin (Negative) Urine Urobilinogen (Negative) mg/dL Ur Leukocyte Gabbie ase (Negative) Urine RBC (0-2) /hpf Urine WBC (0-5) /hpf Ur Squamous Epith Cells (0-5) /hpf Amorphous Sediment Urine Bacteria (NONE) /hpf Urine Opiates Scre en (Negative) ng/mL Ur Barbiturates Sc reen (Negative) ng/mL Ur Phencyclidine S crn (Negative) ng/mL Ur Amphetamines Sc reen (Negative) ng/mL U Benzodiazepines Scrn (Negative) ng/mL Urine Cocaine Scre en (Negative) ng/mL U Marijuana (THC) Screen (Negative) ng/mL Serum Ketones (Negative) Nasal/Oral COVID-1 9 PCR Not detected SARS-CoV-2 Ag (Rap id) Negative (Negative) 08/20/20 08/20/20 08/20/20 Range/Units 08:08 08:08 08:08 WBC (4.0-10.0) 10^3/ uL RBC (4.1-5.3) 10^6/u L Hgb (11.5-15.3) g/dL Hct (37.0-47.0) % MCV (81-99) fL MCH (28.0-34.0) pg MCHC (30.0-36.0) g/dL RDW (12.1-15.1) % Plt Count (130-400) 10^3/c mm MPV (7.4-10.4) fL Neut % (Auto) % Lymph % (Auto) % [place] % (Auto) % Eos % (Auto) % Baso % (Auto) % Neut # (Auto) (1.8-7.7) 10^3/u L Lymph # (Auto) (0.8-4.8) 10^3/u L [place] # (Auto) (0.2-0.9) 10^3/u L Eos # (Auto) (0.0-0.8) 10^3/u L Baso # (Auto) (0.0-0.1) 10^3/u L Nucleated RBC % (a uto) % Nucleated RBCs # /100WBC PT 14.90 (12.1-14.9) SECO NDS INR 1.13 (0.8-1.2) APTT 35.0 (23.9-36.7) SECO NDS Fibrinogen 456 (174-498) mg/dL D-Dimer 11.98 H (0-0.59) ug/mIFE U Specimen Type Sample Site ABG pH (7.35-7.45) ABG pCO2 (35-45) mmHg ABG pO2 (80.0-100.0) mmH g ABG HCO3 (22-26) mmol/L ABG O2 Saturation ABG Base Excess (-2.0-2.0) mmol/ L Clint Test A-a O2 Gradient (5-10) mmHg Hematocrit (37-47) % Hgb O2 Saturation (95-100) % Carboxyhemoglobin (0.4-20.1) %THgb Methemoglobin (0.4-1.5) % Total Hemoglobin (12-16) g/dL Sodium (131-143) mmol/L Potassium (3.5-5.0) mmol/L Glucose (70-115) mg/dL Ionized Calcium (1.1-1.4) mmol/L O2 Delivery Device FiO2 % Tidal Volume PEEP cmH20 [employer] Technician ID Chloride (98-107) mmol/L Carbon Dioxide (22-29) mmol/L Anion Gap (5-19) BUN (6-20) mg/dL Creatinine (0.5-0.9) mg/dL GFR Calculation (90-130) mL/min Calculated Osmolal ity (285-295) mOsm/k g Lactic Acid 1.1 (0.5-2.2) mmol/L Calcium (8.5-10.5) mg/dL Ionized Calcium Me as (1.1-1.4) mmol/L Phosphorus (2.5-4.5) mg/dL Magnesium (1.7-2.3) mg/dL Total Bilirubin (0.15-1.2) mg/dL AST (0-32) U/L ALT (0-33) U/L Alkaline Phosphata se (35-105) IU/L Creatine Kinase (26-192) U/L Troponin T Baselin e (0-10) ng/L Troponin T 120 Min upper [place] (0-10) ng/L Delta Troponin T (0-10) ABS# Troponin T Hi Sens 6Hr (0-10) ng/L Troponin T Hi Sens 6Hr Delta (0-12) ng/L Total Protein (6.6-8.7) g/dL Albumin (3.5-5.2) g/dL Globulin (1.3-4.6) g/dL HCG, Qual (Negative) Urine Color (Yellow) Urine Appearance (CLEAR) Urine pH (5-7) Ur Specific Gravit y (1.005-1.030) Urine Protein (Negative) Urine Glucose (UA) (Normal) Urine Ketones (Negative) Urine Blood (Negative) Urine Nitrate (Negative) Urine Bilirubin (Negative) Urine Urobilinogen (Negative) mg/dL Ur Leukocyte Gabbie ase (Negative) Urine RBC (0-2) /hpf Urine WBC (0-5) /hpf Ur Squamous Epith Cells (0-5) /hpf Amorphous Sediment Urine Bacteria (NONE) /hpf Urine Opiates Scre en (Negative) ng/mL Ur Barbiturates Sc reen (Negative) ng/mL Ur Phencyclidine S crn (Negative) ng/mL Ur Amphetamines Sc reen (Negative) ng/mL U Benzodiazepines Scrn (Negative) ng/mL Urine Cocaine Scre en (Negative) ng/mL U Marijuana (THC) Screen (Negative) ng/mL Serum Ketones (Negative) Nasal/Oral COVID-1 9 PCR SARS-CoV-2 Ag (Rap id) (Negative) 08/20/20 08/20/20 08/20/20 Range/Units 08:23 08:23 10:04 WBC (4.0-10.0) 10^3/ uL RBC (4.1-5.3) 10^6/u L Hgb (11.5-15.3) g/dL Hct (37.0-47.0) % MCV (81-99) fL MCH (28.0-34.0) pg MCHC (30.0-36.0) g/dL RDW (12.1-15.1) % Plt Count (130-400) 10^3/c mm MPV (7.4-10.4) fL Neut % (Auto) % Lymph % (Auto) % [place] % (Auto) % Eos % (Auto) % Baso % (Auto) % Neut # (Auto) (1.8-7.7) 10^3/u L Lymph # (Auto) (0.8-4.8) 10^3/u L [place] # (Auto) (0.2-0.9) 10^3/u L Eos # (Auto) (0.0-0.8) 10^3/u L Baso # (Auto) (0.0-0.1) 10^3/u L Nucleated RBC % (a uto) % Nucleated RBCs # /100WBC PT (12.1-14.9) SECO NDS INR (0.8-1.2) APTT (23.9-36.7) SECO NDS Fibrinogen (174-498) mg/dL D-Dimer (0-0.59) ug/mIFE U Specimen Type Arterial Sample Site Radial, right ABG pH 7.18 L* (7.35-7.45) ABG pCO2 49.3 H (35-45) mmHg ABG pO2 148.0 H (80.0-100.0) mmH g ABG HCO3 18.2 L (22-26) mmol/L ABG O2 Saturation 99.3 ABG Base Excess -9.8 L (-2.0-2.0) mmol/ L Clint Test Pos A-a O2 Gradient 10.0 (5-10) mmHg Hematocrit 27.7 L (37-47) % Hgb O2 Saturation 96.7 (95-100) % Carboxyhemoglobin 1.0 (0.4-20.1) %THgb Methemoglobin 1.5 (0.4-1.5) % Total Hemoglobin 9.1 L (12-16) g/dL Sodium 140.0 (131-143) mmol/L Potassium 5.6 H (3.5-5.0) mmol/L Glucose 188.0 H (70-115) mg/dL Ionized Calcium 1.2 (1.1-1.4) mmol/L O2 Delivery Device Vent FiO2 40.0 % Tidal Volume 0.50 PEEP 8.0 cmH20 [employer] L[employer] Technician ID [place] Chloride (98-107) mmol/L Carbon Dioxide (22-29) mmol/L Anion Gap (5-19) BUN (6-20) mg/dL Creatinine (0.5-0.9) mg/dL GFR Calculation (90-130) mL/min Calculated Osmolal ity (285-295) mOsm/k g Lactic Acid (0.5-2.2) mmol/L Calcium (8.5-10.5) mg/dL Ionized Calcium Me as (1.1-1.4) mmol/L Phosphorus (2.5-4.5) mg/dL Magnesium (1.7-2.3) mg/dL Total Bilirubin (0.15-1.2) mg/dL AST (0-32) U/L ALT (0-33) U/L Alkaline Phosphata se (35-105) IU/L Creatine Kinase (26-192) U/L Troponin T Baselin e (0-10) ng/L Troponin T 120 Min upper [place] (0-10) ng/L Delta Troponin T (0-10) ABS# Troponin T Hi Sens 6Hr (0-10) ng/L Troponin T Hi Sens 6Hr Delta (0-12) ng/L Total Protein (6.6-8.7) g/dL Albumin (3.5-5.2) g/dL Globulin (1.3-4.6) g/dL HCG, Qual (Negative) Urine Color Red (Yellow) Urine Appearance Bloody A (CLEAR) Urine pH 7 (5-7) Ur Specific Gravit y 1.010 (1.005-1.030) Urine Protein 3+ H (Negative) Urine Glucose (UA) Norm (Normal) Urine Ketones Negative (Negative) Urine Blood 3+ H (Negative) Urine Nitrate Negative (Negative) Urine Bilirubin Neg (Negative) Urine Urobilinogen 1 H (Negative) mg/dL Ur Leukocyte Gabbie ase Trace H (Negative) Urine RBC Too numerous to c nt H (0-2) /hpf Urine WBC 5-10 H (0-5) /hpf Ur Squamous Epith Cells None (0-5) /hpf Amorphous Sediment Not Reportable Urine Bacteria 1+ H (NONE) /hpf Urine Opiates Scre en Negative (Negative) ng/mL Ur Barbiturates Sc reen Negative (Negative) ng/mL Ur Phencyclidine S crn Negative (Negative) ng/mL Ur Amphetamines Sc reen Negative (Negative) ng/mL U Benzodiazepines Scrn Positive H (Negative) ng/mL Urine Cocaine Scre en Negative (Negative) ng/mL U Marijuana (THC) Screen Negative (Negative) ng/mL Serum Ketones (Negative) Nasal/Oral COVID-1 9 PCR SARS-CoV-2 Ag (Rap id) (Negative) 08/20/20 08/20/20 08/20/20 Range/Units 10:05 13:00 13:36 WBC (4.0-10.0) 10^3/ uL RBC (4.1-5.3) 10^6/u L Hgb (11.5-15.3) g/dL Hct (37.0-47.0) % MCV (81-99) fL MCH (28.0-34.0) pg MCHC (30.0-36.0) g/dL RDW (12.1-15.1) % Plt Count (130-400) 10^3/c mm MPV (7.4-10.4) fL Neut % (Auto) % Lymph % (Auto) % [place] % (Auto) % Eos % (Auto) % Baso % (Auto) % Neut # (Auto) (1.8-7.7) 10^3/u L Lymph # (Auto) (0.8-4.8) 10^3/u L [place] # (Auto) (0.2-0.9) 10^3/u L Eos # (Auto) (0.0-0.8) 10^3/u L Baso # (Auto) (0.0-0.1) 10^3/u L Nucleated RBC % (a uto) % Nucleated RBCs # /100WBC PT (12.1-14.9) SECO NDS INR (0.8-1.2) APTT (23.9-36.7) SECO NDS Fibrinogen (174-498) mg/dL D-Dimer (0-0.59) ug/mIFE U Specimen Type Arterial Sample Site Radial, right ABG pH 7.29 L (7.35-7.45) ABG pCO2 45.8 H (35-45) mmHg ABG pO2 172.0 H (80.0-100.0) mmH g ABG HCO3 21.9 L (22-26) mmol/L ABG O2 Saturation 100.0 ABG Base Excess -4.6 L (-2.0-2.0) mmol/ L Clint Test Pos A-a O2 Gradient 7.2 (5-10) mmHg Hematocrit 27.0 L (37-47) % Hgb O2 Saturation 97.7 (95-100) % Carboxyhemoglobin 1.1 (0.4-20.1) %THgb Methemoglobin 1.2 (0.4-1.5) % Total Hemoglobin 8.8 L (12-16) g/dL Sodium 145.0 H (131-143) mmol/L Potassium 4.5 (3.5-5.0) mmol/L Glucose 114.0 (70-115) mg/dL Ionized Calcium 1.2 (1.1-1.4) mmol/L O2 Delivery Device Vent FiO2 40.0 % Tidal Volume 0.50 PEEP 8.0 cmH20 [employer] ID Amh Chloride (98-107) mmol/L Carbon Dioxide (22-29) mmol/L Anion Gap (5-19) BUN (6-20) mg/dL Creatinine (0.5-0.9) mg/dL GFR Calculation (90-130) mL/min Calculated Osmolal ity (285-295) mOsm/k g Lactic Acid (0.5-2.2) mmol/L Calcium (8.5-10.5) mg/dL Ionized Calcium Me as (1.1-1.4) mmol/L Phosphorus (2.5-4.5) mg/dL Magnesium (1.7-2.3) mg/dL Total Bilirubin (0.15-1.2) mg/dL AST (0-32) U/L ALT (0-33) U/L Alkaline Phosphata se (35-105) IU/L Creatine Kinase (26-192) U/L Troponin T Baselin e (0-10) ng/L Troponin T 120 Min upper [place] 25.76 H (0-10) ng/L Delta Troponin T 12.76 H* (0-10) ABS# Troponin T Hi Sens 6Hr 35.75 H (0-10) ng/L Troponin T Hi Sens 6Hr Delta 22.75 H* (0-12) ng/L Total Protein (6.6-8.7) g/dL Albumin (3.5-5.2) g/dL Globulin (1.3-4.6) g/dL HCG, Qual (Negative) Urine Color (Yellow) Urine Appearance (CLEAR) Urine pH (5-7) Ur Specific Gravit y (1.005-1.030) Urine Protein (Negative) Urine Glucose (UA) (Normal) Urine Ketones (Negative) Urine Blood (Negative) Urine Nitrate (Negative) Urine Bilirubin (Negative) Urine Urobilinogen (Negative) mg/dL Ur Leukocyte Gabbie ase (Negative) Urine RBC (0-2) /hpf Urine WBC (0-5) /hpf Ur Squamous Epith Cells (0-5) /hpf Amorphous Sediment Urine Bacteria (NONE) /hpf Urine Opiates Scre en (Negative) ng/mL Ur Barbiturates Sc reen (Negative) ng/mL Ur Phencyclidine S crn (Negative) ng/mL Ur Amphetamines Sc reen (Negative) ng/mL U Benzodiazepines Scrn (Negative) ng/mL Urine Cocaine Scre en (Negative) ng/mL U Marijuana (THC) Screen (Negative) ng/mL Serum Ketones (Negative) Nasal/Oral COVID-1 9 PCR SARS-CoV-2 Ag (Rap id) (Negative) 08/20/20 Range/Units 13:36 WBC (4.0-10.0) 10^3/ uL RBC (4.1-5.3) 10^6/u L Hgb (11.5-15.3) g/dL Hct (37.0-47.0) % MCV (81-99) fL MCH (28.0-34.0) pg MCHC (30.0-36.0) g/dL RDW (12.1-15.1) % Plt Count (130-400) 10^3/c mm MPV (7.4-10.4) fL Neut % (Auto) % Lymph % (Auto) % [place] % (Auto) % Eos % (Auto) % Baso % (Auto) % Neut # (Auto) (1.8-7.7) 10^3/u L Lymph # (Auto) (0.8-4.8) 10^3/u L [place] # (Auto) (0.2-0.9) 10^3/u L Eos # (Auto) (0.0-0.8) 10^3/u L Baso # (Auto) (0.0-0.1) 10^3/u L Nucleated RBC % (a uto) % Nucleated RBCs # /100WBC PT (12.1-14.9) SECO NDS INR (0.8-1.2) APTT (23.9-36.7) SECO NDS Fibrinogen (174-498) mg/dL D-Dimer (0-0.59) ug/mIFE U Specimen Type Sample Site ABG pH (7.35-7.45) ABG pCO2 (35-45) mmHg ABG pO2 (80.0-100.0) mmH g ABG HCO3 (22-26) mmol/L ABG O2 Saturation ABG Base Excess (-2.0-2.0) mmol/ L Clint Test A-a O2 Gradient (5-10) mmHg Hematocrit (37-47) % Hgb O2 Saturation (95-100) % Carboxyhemoglobin (0.4-20.1) %THgb Methemoglobin (0.4-1.5) % Total Hemoglobin (12-16) g/dL Sodium 140 (131-143) mmol/L Potassium 4.5 (3.5-5.0) mmol/L Glucose 107 (70-115) mg/dL Ionized Calcium (1.1-1.4) mmol/L O2 Delivery Device FiO2 % Tidal Volume PEEP cmH20 [employer] ID Chloride 107 (98-107) mmol/L Carbon Dioxide 23 (22-29) mmol/L Anion Gap 14.5 (5-19) BUN 33 H (6-20) mg/dL Creatinine 4.8 H (0.5-0.9) mg/dL GFR Calculation 9.6 L (90-130) mL/min Calculated Osmolal ity 298 H (285-295) mOsm/k g Lactic Acid (0.5-2.2) mmol/L Calcium 8.7 (8.5-10.5) mg/dL Ionized Calcium Me as (1.1-1.4) mmol/L Phosphorus (2.5-4.5) mg/dL Magnesium (1.7-2.3) mg/dL Total Bilirubin (0.15-1.2) mg/dL AST (0-32) U/L ALT (0-33) U/L Alkaline Phosphata se (35-105) IU/L Creatine Kinase (26-192) U/L Troponin T Baselin e (0-10) ng/L Troponin T 120 Min upper [place] (0-10) ng/L Delta Troponin T (0-10) ABS# Troponin T Hi Sens 6Hr (0-10) ng/L Troponin T Hi Sens 6Hr Delta (0-12) ng/L Total Protein (6.6-8.7) g/dL Albumin (3.5-5.2) g/dL Globulin (1.3-4.6) g/dL HCG, Qual (Negative) Urine Color (Yellow) Urine Appearance (CLEAR) Urine pH (5-7) Ur Specific Gravit y (1.005-1.030) Urine Protein (Negative) Urine Glucose (UA) (Normal) Urine Ketones (Negative) Urine Blood (Negative) Urine Nitrate (Negative) Urine Bilirubin (Negative) Urine Urobilinogen (Negative) mg/dL Ur Leukocyte Gabbie ase (Negative) Urine RBC (0-2) /hpf Urine WBC (0-5) /hpf Ur Squamous Epith Cells (0-5) /hpf Amorphous Sediment Urine Bacteria (NONE) /hpf Urine Opiates Scre en (Negative) ng/mL Ur Barbiturates Sc reen (Negative) ng/mL Ur Phencyclidine S crn (Negative) ng/mL Ur Amphetamines Sc reen (Negative) ng/mL U Benzodiazepines Scrn (Negative) ng/mL Urine Cocaine Scre en (Negative) ng/mL U Marijuana (THC) Screen (Negative) ng/mL Serum Ketones (Negative) Nasal/Oral COVID-1 9 PCR SARS-CoV-2 Ag (Rap id) (Negative) Critical Care Time Critical Care Time: Critical Care Time: Yes Total Critical Care Time: 120 Attestation: This case had a high probability of a clinically significant, sudden, or life threatening deterioration of this patient's condition which required my full and direct attention, intervention and personal management. Discharge Plan Discharge Patient Disposition: Xfer Short-Term Hosp Clinical Impression: Cardiac arrest, End stage renal disease, Pneumonia Prescriptions: No Action diazepam [Valium] 10 mg tablet 10 mg PO DAILY PRN (Reason: anxiety) Qty: 10 RF: 0 acetazolamide 250 mg tablet 250 mg PO BID RF: 0 tramadol 50 mg tablet 50 mg PO QID PRN (Reason: Pain) RF: 0 alprazolam 0.25 mg tablet 0.25 mg PO BID PRN (Reason: Anxiety) RF: 0 potassium chloride 20 mEq tablet,ER particles/crystals 20 meq PO DAILY RF: 0 hydroxyzine HCl 25 mg tablet 25 mg PO BID PRN (Reason: Anxiety) RF: 0 ProAir HFA 90 mcg/actuation HFA aerosol inhaler 1 puff INHALATION Q4H PRN (Reason: Shortness Of Breath) RF: 0 bupropion HCl 300 mg tablet extended release 24 hr 300 mg PO DAILY RF: 0 pregabalin 150 mg capsule 150 mg PO TID RF: 0 Januvia 25 mg tablet 25 mg PO DAILY RF: 0 Symbicort 160-4.5 mcg/actuation HFA aerosol inhaler 2 puff INHALATION DAILY RF: 0 Incruse Ellipta 62.5 mcg/actuation blister with device 1 inh INHALATION DAILY RF: 0 RenaPlex-D 800 mcg-12.5 mg -2,000 unit tablet 1 tab PO DAILY RF: 0 Referrals: Reese Griggs MD [Primary Care Provider] - Coding Level of Care Code ED Rn Ante Partum for g Fwd Exam Detailed
[2020-08-20 08:51] LABS: INR 1.13 (0.8-1.2)
[2020-08-20 08:54] LABS: Amphetamines Screen Urine Negative (Negative); Barbiturates Screen Urine Negative (Negative); Benzodiazepines Screen Urine Positive (Negative); Cocaine Screen Urine Negative (Negative); Opiate Screen Urine Negative (Negative); PCP Screen Urine Negative (Negative); THC Screen Urine Negative (Negative)
[2020-08-20 08:57] LABS: Urine Appearance Bloody (CLEAR); Urine Color Red (Yellow); pH Urine 7 (5-7)
[2020-08-20 08:59] LABS: Add Urine Microscopic? YES; Bilirubin Urine Neg (Negative); Blood Urine 3+ (Negative); Glucose Urine UA Norm (Normal); Ketones Urine Negative (Negative); Leukocyte Esterase Urine Trace (Negative); Nitrate Urine Negative (Negative); Protein Urine 3+ (Negative); RBC Urine TOO NUMEROUS TO CNT /hpf (0-2); Urobilinogen Urine 1 mg/dL (Negative)
[2020-08-20 09:00] LABS: Add Urine Culture? Yes; Bacteria Urine 1+ /hpf
[2020-08-20] MEDS: sodium bicarbonate 8.4% 1 mEq/mL 50mL Syr 100 MEQ IVP ×2 (09:11→10:58)
[2020-08-20] MEDS: calcium gluconate 0.1 gm/mL 10% SDV 10mL 1 GM IVP ×2 (09:11→10:24)
--- NOTE | 2020-08-20 09:16 | ECG_ITS ---
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 Measurements Intervals [place] Rate: 101 P: 64 [place]: 168 QRS: 43 QRSD: 116 T: 22 QT: 351 QTc: 455 Interpretive Statements SINUS TACHYCARDIA MODERATE INTRAVENTRICULAR CONDUCTION DELAY [110+ ms QRS DURATION] Compared to ECG 08/20/2020 07:21:02 ST (T wave) deviation no longer present Electronically Signed On 08-21-2020 16:44:13 ELECTRIC METER REPAIRER by Chintan Landin M.D. [email or web address].Dely/store/[id number]
[2020-08-20 09:40] LABS: Alanine Aminotransferase 179 U/L (0-33); Alkaline Phosphatase 87 IU/L (35-105); Aspartate Amino Transferase 216 U/L (0-32); Blood Urea Nitrogen 31 mg/dL (6-20); Calcium 8.3 mg/dL (8.5-10.5); Carbon Dioxide 19 mmol/L (22-29); Chloride 106 mmol/L (98-107); Globulin 2.6 g/dL (1.3-4.6); Glomerular Filtration Rate 9.9 mL/min (90-130); Glucose 224 mg/dL (65-115); Magnesium 1.8 mg/dL (1.7-2.3); Osmolality Calculated 292 mOsm/kg (285-295); Sodium 134 mmol/L (136-145); Total Bilirubin 0.6 mg/dL (0.15-1.2); Total Protein 6.6 g/dL (6.6-8.7)
[2020-08-20 09:47] LABS: Phosphorus 7.6 mg/dL (2.5-4.5)
[2020-08-20] MEDS: iodixanol 320 mg/mL 100mL Btl IV (09:57)
[2020-08-20 09:59] LABS: Fibrinogen 456 mg/dL (174-498)
[2020-08-20] MEDS: pantoprazole 40 MG in sodium chloride 0.9% (plus) 100 ML 300 MG IV (10:00)
[2020-08-20 10:09] LABS: D Dimer 11.98 ug/mIFEU (0-0.59)
[2020-08-20 10:15] LABS: ABG PCO2 49.3 mmHg (35-45); Arterial Blood Gas Hematocrit 27.7 % (37-47); Blood Gas Allen Test Pos; Blood Gas Sample Type Arterial; HGB O2 Sat 96.7 % (95-100); Ionized Calcium Level - ABG 1.2 mmol/L (1.1-1.4); Methemoglobin 1.5 % (0.4-1.5); Oxygen Saturation ABG 99.3; Potassium Level - ABG 5.6 mmol/L (3.5-5.0); Total Hemoglobin 9.1 g/dL (12-16)
[2020-08-20 10:16] LABS: Base Excess ABG -9.8 mmol/L (-2.0-2.0); HCO3 ABG 18.2 mmol/L (22-26)
[2020-08-20 10:17] LABS: ABG PH Result 7.18 (7.35-7.45); Blood Gas Operator Identificat MONRO; Blood Gas Sample Site Radial, right; Oxygen Device VENT
[2020-08-20] MEDS: insulin regular-human 100 units/1 mL 10 UNIT IVP (10:25)
[2020-08-20 10:31] LABS: Troponin 5 2HR 25.76 ng/L (0-10)
[2020-08-20 10:35] LABS: Troponin 5 2HR Delta 12.76 ABS# (0-10)
[2020-08-20 10:48] LABS: Creatine Phosphokinase 111 U/L (26-192)
[2020-08-20] MEDS: neomycin-poly-bacitracin oint 0.9 gm Pkt 1 APPLIC TOPICAL (11:07)
[2020-08-20 13:12] LABS: ABG PCO2 45.8 mmHg (35-45); ABG PH Result 7.29 (7.35-7.45); Alveolar-Arterial Oxygen Gradi 7.2 mmHg (5-10); Base Excess ABG -4.6 mmol/L (-2.0-2.0); Blood Gas Allen Test Pos; Blood Gas Operator Identificat AMH; Blood Gas Sample Site Radial, right; Blood Gas Sample Type Arterial; Carboxyhemoglobin 1.1 %THgb (0.4-20.1); HCO3 ABG 21.9 mmol/L (22-26); HGB O2 Sat 97.7 % (95-100); Ionized Calcium Level - ABG 1.2 mmol/L (1.1-1.4); Methemoglobin 1.2 % (0.4-1.5); Oxygen Device VENT; Potassium Level - ABG 4.5 mmol/L (3.5-5.0); Total Hemoglobin 8.8 g/dL (12-16)
--- NOTE | 2020-08-20 13:16 | ECG_ITS ---
[facility] Test Date: 2020-08-20 Pat Name: Mercy Payne Department: Room: Gender: Female Manager Medicare Marketing: : 1970 Requested By: Mary Cisneros Order Number: [id number] Ary MD: Chintan Landin M.D. Measurements Intervals [place] Rate: 88 P: 66 [place]: 161 QRS: 29 QRSD: 106 T: 38 QT: 374 QTc: 454 Interpretive Statements SINUS RHYTHM MODERATE T-WAVE ABNORMALITY, CONSIDER ANTERIOR ISCHEMIA [-0.1+ mV T WAVE IN V3/V4] Compared to ECG 08/20/2020 09:19:55 T-wave abnormality now present Possible ischemia now present Sinus tachycardia no longer present Intraventricular conduction delay no longer present Electronically Signed On 08-21-2020 16:45:25 SOFTWARE TOOLS BUILD ENGINEER by Chintan Landin M.D. [email or web address] [email or web address] general [email or web address].[facility].DigitalMR/store/OM/[id number]
[2020-08-20 14:02] LABS: Anion Gap 14.5 (5-19); Blood Urea Nitrogen 33 mg/dL (6-20); Calcium 8.7 mg/dL (8.5-10.5); Carbon Dioxide 23 mmol/L (22-29); Chloride 107 mmol/L (98-107); Glomerular Filtration Rate 9.6 mL/min (90-130); Glucose 107 mg/dL (65-115); Osmolality Calculated 298 mOsm/kg (285-295); Potassium 4.5 mmol/L (3.5-5.1); Sodium 140 mmol/L (136-145)
[2020-08-20 14:03] LABS: Troponin 5 6HR 35.75 ng/L (0-10)
[2020-08-20 14:10] LABS: Troponin 5 6HR Delta 22.75 ng/L (0-12)
[2020-08-20 14:18] LABS: Coronavirus Test Green County Not Detected
== END 2020-08-20 15:51 | disposition short-term general hospital (02) ==
PROVIDERS: Nurse Practitioner Family; Emergency Provider Family Medicine; PCP Family Medicine
DX: I46.9 Cardiac arrest, cause unspecified (principal); J18.9 Pneumonia, unspecified organism; N18.6 End stage renal disease; Z79.899 Other long term (current) drug therapy
CPT/HCPCS: 31500; 36415; 36556; 36600; 51702; 70450; 71045; 71275; 80048; 80051; 80053; 80306; 81001; 82009; 82330; 82550; 82805; 83605; 83735; 84100; 84484; 84703; 85025; 85378; 85384; 85610; 85730; 87040; 87070; 87086; 87205; 87426; 87635; 93005; 94002; 94640; 94799; 96365; 96366; 96367; 96375; 96376; 99291; C9113; J0610; J1815; J2250; J3010; J3490; J7611; Q9967

== ENCOUNTER → 2020-12-20 16:11 | Outpatient (BNVA) | payer MEDICARE, MEDICAID, SELFPAY | PROVIDERS: PCP Family Medicine; Visit Provider Nurse Practitioner | DX: S52.501A Unspecified fracture of the lower end of right radius, initial encounter for closed fracture (principal); W19.XXXA Unspecified fall, initial encounter | CPT/HCPCS: 73110 ==

== ENCOUNTER 2020-12-24 14:15 | Outpatient (CLI) | payer MEDICARE, MEDICAID, SELFPAY | END 2020-12-24 14:16 | disposition home or self-care (01) | LOC: SPT 14:16 | PROVIDERS: PCP Family Medicine; Visit Provider Orthopaedic Surgery | DX: Z46.89 Encounter for fitting and adjustment of other specified devices (principal); S52.591D Other fractures of lower end of right radius, subsequent encounter for closed fracture with routine healing; X58.XXXD Exposure to other specified factors, subsequent encounter | CPT/HCPCS: 97760; L3982 ==

== ENCOUNTER → 2021-01-21 11:36 | Outpatient (BNVA) | payer MEDICARE, MEDICAID, SELFPAY | PROVIDERS: PCP Family Medicine; Visit Provider Orthopaedic Surgery | DX: S52.501A Unspecified fracture of the lower end of right radius, initial encounter for closed fracture (principal); X58.XXXA Exposure to other specified factors, initial encounter | CPT/HCPCS: 73110 ==

== ENCOUNTER → 2021-08-31 14:59 | Outpatient (BNVA) | payer MEDICARE, MEDICAID, SELFPAY | PROVIDERS: PCP Family Medicine; Referring Provider Family Medicine; Visit Provider Obstetrics & Gynecology | DX: N93.9 Abnormal uterine and vaginal bleeding, unspecified (principal); Z12.4 Encounter for screening for malignant neoplasm of cervix | CPT/HCPCS: 87624 ==

== ENCOUNTER 2021-10-12 12:20 | Outpatient (CLI) | payer MEDICARE, MEDICAID, SELFPAY ==
--- NOTE | 2021-10-12 12:34 | US_ITS ---
WS: [id number] TRANSABDOMINAL PELVIC AND TRANSVAGINAL PELVIC ULTRASOUND HISTORY: N93.9 - Abnormal uterine and vaginal bleeding, unspecified COMPARISON: 07/19/2008 Uterus: 7.0 cm x 5.0 cm x 3.4 cm. Normal size anteverted uterus. Mildly lobulated appearance of the u terus with several scattered calcifications in the myometrium. No discrete mass. These may be vascula r calcifications in the periphery of the uterus. No fibroid is appreciated. Endometrium: 0.3 cm. Calcification at the adjacent to the endometrium. Endometrium is poorly visualiz ed. Right ovary: 2.5 cm x 1.8 cm x 2.5 cm. RIGHT ovary is poorly visualized. There may be some small foll icles associated with the ovary. I'm not sure the ovary is identified. Left ovary: Not visualized. No free fluid. US/US pelvic with transvaginal IMPRESSION: 1. Technically limited and difficult evaluation of the pelvic structures. 2. LEFT ovary is not identified. The RIGHT ovary may be identified but cannot be adequately evaluated to exclude abnormality. 3. Calcifications in the periphery of the myometrium may be vascular calcifica tions. No mass identified. 4. Very limited evaluation of the endometrium. The endometrium is not seen in its entirety.
== END 2021-10-12 12:21 | disposition home or self-care (01) ==
LOC: RAD 12:22
PROVIDERS: PCP Family Medicine; Visit Provider Obstetrics & Gynecology
DX: N93.9 Abnormal uterine and vaginal bleeding, unspecified (principal)
CPT/HCPCS: 76830; 76856

== ENCOUNTER 2022-07-24 20:13 | Emergency (ER) | payer MEDICARE, MEDICAID, SELFPAY ==
--- NOTE | 2022-07-24 20:16 | W.ED.WEAKNES ---
HPI - Weakness General: Chief complaint: Weakness Stated complaint: WEAKNESS Time Seen by Provider: 07/24/22 20:15 History of Present Illness: Ms. Payne is a 52-year-old lady with complex past medical history COPD, hypertension, hyperlipidemia, diabetes, end-stage renal disease on hemodialysis presented to the emergency department for generalized illness. She reports onset of symptoms approximately 4 days ago with decreased activity, generalized malaise, poor p.o. intake. She missed dialysis yesterday and today started having racing heart and shortness of breath as well as exacerbation of back pain. Intensity symptoms moderate. Course has persisted. Mild improvement with EMS treatment. No other specific changes in health, exacerbating, or alleviating factors identified. Onset (ago): day(s) Duration: constant Location: generalized Severity: moderate Relieving factors: none Exacerbating factors: none Associated symptoms: Reports myalgias, short of breath and other Review of Systems General: Reports: 10 or more systems reviewed and unremarkable except in HPI and below PFSH ED PFSH: Medical History Anxiety and depression Diagnosed at the age of 17 and has been on and off medication-currently being managed by her primary care provider Cardiac arrest Reports having a myocardial infarction in August 2020 and is currently just on aspirin. She does not remember needing to take any other medication COPD (chronic obstructive pulmonary disease) Diagnosed in her early 20s and is on medication managed by her primary care provider. 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 Diabetes mellitus Diagnosed in 2020 and has diabetic neuropathy. This is managed by her primary care provider End stage renal disease Diagnosed in 2017 and has been on dialysis 3 times a week since then managed by turbinated bone grinder Dr. Stringer out of [place]. Fibromyalgia Diagnosed in her 30s and it is managed by her primary care provider GERD (gastroesophageal reflux disease) Diagnosed in her 30s-is unsure if she has had an endoscopy done Intraocular pressure increase Is on acetazolamide prescribed by Dr. Jacques and she sees him every 6 months for this No pertinent past medical history Denies DVT/PE PCP: Dr. 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 S/P laparoscopic cholecystectomy 2015 Status post insertion of dialysis catheter x 2 Had dialysis catheter/fistula surgery in 2018 and had to have it revised again Status post tubal ligation Done at the time of her third Family History Other Hypertension Physical Exam Const: COMMON NORMALS: patient oriented x3 and alert GENERAL APPEARANCE: cooperative and well developed HENMT: COMMON NORMALS: normocephalic and atraumatic HEAD & SCALP: normocephalic and atraumatic THROAT: posterior oropharynx normal Eye: COMMON NORMALS: conjunctivae normal CONJUNCTIVA: Yes conjunctivae normal SCLERA: sclerae normal Neck/C-Spine: COMMON NORMALS: supple GENERAL: Yes trachea midline Resp: EFFORT & INSPECTION: Yes able to speak in complete sentences and Yes tachypneic AUSCULTATION: diminished lung sounds Cardio: COMMON NORMALS: regular rate and regular rhythm RATE: regular rate RHYTHM: regular rhythm OTHER: Left AV fistula GI: COMMON NORMALS: Soft to palpation PALPATION: Yes Soft to palpation and No Tenderness to palpation present (GI) PERCUSSION: normal to percussion Extremity: GENERAL: Yes normal exam except as noted and No edema Neuro: COMMON NORMALS: patient oriented x3, CN's II-XII intact bilaterally, moves all extremities, no focal motor deficits and no sensory deficits noted SENSORIUM/ORIENTATION: Yes alert and No Orientation impaired Psych: COMMON NORMALS: mental status grossly normal and Normal thought process present THOUGHT PROCESS: Normal thought process present Course Vital Signs: Vital signs: Vital Signs Temperature 98.3 F 07/24/22 20:17 Pulse Rate 86 07/24/22 23:15 Respiratory Rate 16 07/24/22 23:15 Blood Pressure 161/89 07/24/22 21:25 Pulse Oximetry 98 07/24/22 23:15 Oxygen Delivery Me thod 07/24/22 23:15 Oxygen Flow Rate 3 07/24/22 23:15 MDM - Weakness Medical Decision Making 52-year-old lady with complex history including end-stage renal disease on dialysis presenting for generalized symptoms. Exam as above. Patient is nontoxic in appearance. She is on her baseline oxygen which he uses at home. EKG notable for sinus rhythm with nonspecific ST segment abnormalities, no evidence of peaked T waves, intervals are normal, no STEMI. Similar to prior and on repeat. Labs with mild leukocytosis and normal hemoglobin. Platelet count normal. Metabolic panel with hyponatremia, hypochloremia, and hypokalemia. Gap is minimally elevated with normal bicarb. Creatinine elevated as expected and is due to renal disease. The 2-hour delta troponin is in the negative range. BNP elevated. Negative viral panel. Chest x-ray with mild pulmonary vascular congestion. Possible pneumonia, no pneumothorax. Patient felt significantly proved with albuterol treatment, antiemetic, and analgesia. She was given a dose of antibiotics for possible pneumonia. Most likely etiology of patient symptoms is mild lumbar right hand pneumonia. The results of ED evaluation were discussed with the patient including possible disposition options. I offered the patient admission which she declined as she feels that she can wait till Tuesday for dialysis. I discussed prescriptions and/or symptomatic cares (if applicable) including appropriate and responsible use, followup plan, and return precautions. The patient verbalized understanding and felt safe for discharge. Medical Records I reviewed the patient's medical records. Lab Data I reviewed the patient's lab results. 07/24/22 20:26 07/24/22 20:53 Radiology Impressions Chest X-Ray 07/24/22 20:24 IMPRESSION: Borderline cardiac size and increased markings or pulmonary vascularity, particularly around the perihilar and lower lobe region. Findings could reflect mild CHF with pulmonary vascular congestion though a component of bilateral mild interstitial pneumonitis requires clinical correlation. No consolidation or effusion is seen. Laboratory Results WBC 11.3 10^3/uL (4.0-10.0) H 07/24/22 20: RBC 3.56 10^6/uL (4.1-5.3) L 07/24/22 20: Hgb 11.5 g/dL (11.5-15.3) 07/24/22 20: Hct 36.5 % (37.0-47.0) L 07/24/22 20: MCV 102.5 fl (81-99) H 07/24/22 20: MCH 32.3 pg (28.0-34.0) 07/24/22 20: MCHC 31.5 g/dL (30.0-36.0) 07/24/22 20: RDW 15.5 % (12.1-15.1) H 07/24/22 20: Plt Count 192 10^3/cmm (130-400) 07/24/22 20: MPV 10.3 fL (7.4-10.4) 07/24/22 20: Neut % (Auto) 80.4 % 07/24/22 20: Lymph % (Auto) 11.3 % 07/24/22 20: [place] % (Auto) 6.9 % 07/24/22 20: Eos % (Auto) 0.1 % 07/24/22 20: Baso % (Auto) 0.4 % 07/24/22: Neut # (Auto) 9.07 10^3/uL (1.8-7.7) H 07/24/22 20: Lymph # (Auto) 1.3 10^3/uL (0.8-4.8) 07/24/22: [place] # (Auto) 0.8 10^3/uL (0.2-0.9) 07/24/22 20: Eos # (Auto) 0.0 10^3/uL (0.0-0.8) 07/24/22: Baso # (Auto) 0.0 10^3/uL (0.0-0.1) 07/24/22 20: Nucleated RBC % (auto) 0 % 07/24/22 20: Nucleated RBCs # 0.0 /100WBC 07/24/22 20: Sodium 131 mmol/L (136-145) L 07/24/22 20:53 Potassium 3.4 mmol/L (3.5-5.1) L 07/24/22 20:53 Chloride 88 mmol/L (98-107) L 07/24/22 20:53 Carbon Dioxide 23 mmol/L (22-29) 07/24/22 20:53 Anion Gap 23.4 (5-19) H 07/24/22 20:53 BUN 33 mg/dL (6-20) H 07/24/22 20:53 Creatinine 8.9 mg/dL (0.5-0.9) H* 07/24/22 20:53 GFR Calculation 4.7 mL/min (90-130) L 07/24/22 20:53 Glucose 135 mg/dL (65-115) H 07/24/22 20:53 Calculated Osmolality 281 mOsm/kg (285-295) L 07/24/22 20:53 Calcium 9.4 mg/dL (8.5-10.5) 07/24/22 20:53 Total Bilirubin 0.4 mg/dL (0.15-1.2) 07/24/22 20:53 AST 18 U/L (0-32) 07/24/22 20:53 ALT 21 U/L (0-33) 07/24/22 20:53 Alkaline Phosphatase 73 U/L (35-105) 07/24/22 20:53 Troponin T Baseline 22 ng/L (0-10) H 07/24/22 20:53 Troponin T 120 Minute 24.50 ng/L (0-10) H 07/24/22 22:35 Delta Troponin T 2.50 ABS# (0-10) 07/24/22 22:35 NT-Pro-B Natriuret Pep 62500 pg/mL (0-125) H 07/24/22 20:53 Total Protein 7.3 g/dL (6.6-8.7) 07/24/22 20:53 Albumin 3.7 g/dL (3.5-5.2) 07/24/22 20:53 Globulin 3.6 g/dL (1.3-4.6) 07/24/22 20:53 TSH 2.74 uIU/mL (0.27-4.20) 07/24/22 20:53 Coronavirus 229E (PCR) Not detected (NOT DETECT) 07/24/22 20:33 SARS-CoV-2 (PCR) Not detected (NOT DETECT) 07/24/22 20:33 Discharge Plan Discharge Patient Disposition: Home Clinical Impression: Pneumonia, ESRD on dialysis, Pulmonary edema Condition: Stable Prescriptions: New albuterol sulfate 90 mcg/actuation HFA aerosol inhaler 2 inh inhalation Q4H PRN (Reason: shortness of breath or wheezing) Qty: 8.5 0RF levofloxacin 500 mg tablet 500 mg PO EVERY OTHER DAY Qty: 7 0RF No Action paroxetine HCl [Paxil] 10 mg tablet 10 mg PO DAILY omeprazole 40 mg capsule,delayed release(DR/EC) 40 mg PO BID fenofibrate nanocrystallized 48 mg tablet 48 mg PO DAILY aspirin [Adult Low Dose Aspirin] 81 mg tablet,delayed release (DR/EC) 81 mg PO DAILY Qty: 90 3RF acetazolamide 250 mg tablet 250 mg PO BID tramadol 50 mg tablet 50 mg PO QID PRN (Reason: Pain) alprazolam 0.25 mg tablet 0.25 mg PO BID PRN (Reason: Anxiety) potassium chloride 20 mEq tablet,ER particles/crystals 20 meq PO DAILY hydroxyzine HCl 25 mg tablet 25 mg PO BID PRN (Reason: Anxiety) ProAir HFA 90 mcg/actuation HFA aerosol inhaler 1 puff INHALATION Q4H PRN (Reason: Shortness Of Breath) bupropion HCl 300 mg tablet extended release 24 hr 300 mg PO DAILY pregabalin 150 mg capsule 150 mg PO TID Januvia 25 mg tablet 25 mg PO DAILY Symbicort 160-4.5 mcg/actuation HFA aerosol inhaler 2 puff INHALATION DAILY Incruse Ellipta 62.5 mcg/actuation blister with device 1 inh INHALATION DAILY RenaPlex-D 800 mcg-12.5 mg -2,000 unit tablet 1 tab PO DAILY Discharge Orders: Discharge ED (Routine); Ordered 07/24/22 Ordered By: Clem Fair Referrals: Reese Griggs MD [Primary Care Provider] - Discharge Diet: Usual diet Discharge Activity: Increase activity as tolerated Patient Instructions: Pulmonary Edema (ED), Pneumonia (ED), Opioid Safety Activity Restrictions/Additional Instructions: Thank you for visiting the emergency department. You were seen and evaluated for shortness of breath and generalized illness. The most likely cause of your symptoms is multifactorial including pneumonia and need for dialysis. After discussion you felt safe enough to try outpatient treatment with plan to get dialysis on Tuesday. I will prescribe antibiotics. Please also use your albuterol metered-dose inhaler 2 puffs every 4 hours for 24 hours followed by 2 puffs every 6 hours for 24 hours followed by 2 puffs every 8 hours for 24 hours and then return to the normal schedule. Return to the emergency department for worsening symptoms or anything else that you are concerned about a feel needs emergency department evaluation. Coding Level of Care Code ED Case Management Rn for Timmy Borrego
[2022-07-24 20:17] VITALS: BP 166/90; PULSE 99; RESP 24; TEMP 36.8; O2SAT 99; BMI 36.0
--- NOTE | 2022-07-24 20:24 | XRR_ITS ---
PROCEDURE INFORMATION: Exam: XR Chest Exam date and time: 07/24/2022 8:36 PM Age: 52 years old Clinical indication: Cough and shortness of breath; Prior surgery; Surgery date: 6+ months; Surgery type: Temp port dialysis; Patient HX: Cough, short of breath; Additional info: SOB, cp TECHNIQUE: Imaging protocol: Radiologic exam of the chest. Views: 1 view. COMPARISON: CR XR chest 1V portable [id number] 08/20/2020 7:21 AM FINDINGS: Lungs: Increased pulmonary markings and/or pulmonary y vascularity is seen bilaterally. No consolidation. Pleural spaces: Unremarkable. No pleural effusion. No pneumothorax. Heart/Mediastinum: Borderline cardiac size. Bones/joints: Unremarkable. XR/XR chest 1V portable [id number] IMPRESSION: Borderline cardiac size and increased markings or pulmonary vascularity, particularly around the perihilar and lower lobe region. Findings could reflect mild CHF with pulmonary vascular congestion though a component of bilateral mild interstitial pneumonitis requires clinical correlation. No consolidation or effusion is seen.
--- NOTE | 2022-07-24 20:25 | ECG_ITS ---
[facility] Test Date: 2022-07-24 Pat Name: Mercy Payne Department: Room: Gender: Female Risk Tech: : 1970 Requested By: Clem Fair Order Number: [id number] Ary MD: Su Nagy M.D. Measurements Intervals [place] Rate: 99 P: 69 [place]: 162 QRS: 76 QRSD: 106 T: 47 QT: 338 QTc: 435 Interpretive Statements SINUS RHYTHM NONSPECIFIC T-WAVE ABNORMALITY Compared to ECG 08/20/2020 13:09:40 Possible ischemia no longer present T-wave abnormality still present Electronically Signed On 07-25-2022 8:46:09 CONTINUOUS PROCESS ROTARY DRUM TANNER by uS Nagy M.D. [email or web address] mercy hospitalOtto Clave/store/[id number]
[2022-07-24 20:34] LABS: Basophils % 0.4 %; Eosinophils % 0.1 %; Hematocrit 36.5 % (37.0-47.0); Hemoglobin 11.5 g/dL (11.5-15.3); Lymphocytes # 1.3 10^3/uL (0.8-4.8); Lymphocytes % 11.3 %; Mean Corpuscular HGB Conc 31.5 g/dL (30.0-36.0); Mean Corpuscular Hemoglobin 32.3 pg (28.0-34.0); Mean Corpuscular Volume 102.5 fl (81-99); Mean Platelet Volume 10.3 fL (7.4-10.4); Monocytes # 0.8 10^3/uL (0.2-0.9); Monocytes % 6.9 %; Neutrophils # 9.07 10^3/uL (1.8-7.7); Neutrophils % 80.4 %; Nucleated Red Blood Cells % 0 %; Platelet Count 192 10^3/cmm (130-400); Red Blood Count 3.56 10^6/uL (4.1-5.3); Red Cell Distribution Width 15.5 % (12.1-15.1); White Blood Count 11.3 10^3/uL (4.0-10.0)
[2022-07-24] MEDS: albuterol 2.5 mg/3 mL Neb INHALATION ×2 (20:52→23:13)
[2022-07-24 20:55] VITALS: PULSE 91; RESP 20; O2SAT 99
[2022-07-24 20:57] VITALS: PULSE 91; RESP 20; O2SAT 99
[2022-07-24 21:25] VITALS: BP 161/89; PULSE 91; RESP 18; O2SAT 95
[2022-07-24 21:26] LABS: Troponin(5th) Baseline 22 ng/L (0-10)
[2022-07-24 21:37] LABS: Alanine Aminotransferase 21 U/L (0-33); Albumin Level 3.7 g/dL (3.5-5.2); Alkaline Phosphatase 73 U/L (35-105); Aspartate Amino Transferase 18 U/L (0-32); Blood Urea Nitrogen 33 mg/dL (6-20); Calcium 9.4 mg/dL (8.5-10.5); Carbon Dioxide 23 mmol/L (22-29); Chloride 88 mmol/L (98-107); Globulin 3.6 g/dL (1.3-4.6); Glomerular Filtration Rate 4.7 mL/min (90-130); Glucose 135 mg/dL (65-115); NT Pro B Type Natriuretic Pept 11593 pg/mL (0-125); Osmolality Calculated 281 mOsm/kg (285-295); Sodium 131 mmol/L (136-145); Thyroid Stimulating Hormone 2.74 uIU/mL (0.27-4.20); Total Bilirubin 0.4 mg/dL (0.15-1.2); Total Protein 7.3 g/dL (6.6-8.7)
[2022-07-24 21:39] LABS: Anion Gap 23.4 (5-19); Potassium 3.4 mmol/L (3.5-5.1)
[2022-07-24] MEDS: TRAMadol 50 mg Tablet PO (22:01)
[2022-07-24 22:20] LABS: Adenovirus Not Detected (NOT DETECT); Chlamydia Pneumoniae Not Detected (NOT DETECT); Coronavirus 229E,HKU1,NL63,OC4 Not Detected (NOT DETECT); Human Metapneumovirus Not Detected (NOT DETECT); Human Rhinovirus/Enterovirus Not Detected (NOT DETECT); Influenza A Not Detected (NOT DETECT); Influenza A H1 Not Detected (NOT DETECT); Influenza A H1-2009 Not Detected (NOT DETECT); Influenza A H3 Not Detected (NOT DETECT); Influenza B Not Detected (NOT DETECT); Mycoplasma Pneumoniae Not Detected (NOT DETECT); Parainfluenza Virus Type 1 Not Detected (NOT DETECT); Parainfluenza Virus Type 2 Not Detected (NOT DETECT); Parainfluenza Virus Type 3 Not Detected (NOT DETECT); Parainfluenza Virus Type 4 Not Detected (NOT DETECT); Respiratory Syncytial Virus A Not Detected (NOT DETECT); Respiratory Syncytial Virus B Not Detected (NOT DETECT); SARS-COV-2 Not Detected (NOT DETECT)
--- NOTE | 2022-07-24 22:34 | ECG_ITS ---
[facility] Test Date: 2022-07-24 Pat Name: Mercy Payne Department: Room: Gender: Female Health Education Specialist: : 1970 Requested By: Clem Fair Order Number: [id number] Ary MD: Su Nagy M.D. Measurements Intervals [place] Rate: 92 P: 68 [place]: 167 QRS: 76 QRSD: 107 T: 41 QT: 361 QTc: 447 Interpretive Statements SINUS RHYTHM POSSIBLE LEFT ATRIAL ENLARGEMENT [-0.1mV P-WAVE IN V1/V2] Compared to ECG 07/24/2022 20:31:12 T-wave abnormality no longer present Electronically Signed On 07-25-2022 9:10:32 FIRER AUTOMATIC STOKER by Su Nagy M.D. [id number]
[2022-07-24 23:00] VITALS: PULSE 86; RESP 16; O2SAT 98
[2022-07-24 23:15] VITALS: PULSE 86; RESP 16; O2SAT 98
[2022-07-24] MEDS: ondansetron 2 mg/ML SDV 2 mL 4 MG IVP (23:33)
[2022-07-24] MEDS: levoFLOXacin 750 mg Tablet PO (23:34)
== END 2022-07-24 23:45 | disposition home or self-care (01) ==
PROVIDERS: Emergency Provider Emergency Medicine; PCP Family Medicine
DX: J44.0 Chronic obstructive pulmonary disease with (acute) lower respiratory infection (principal); J18.9 Pneumonia, unspecified organism; J81.1 Chronic pulmonary edema; E11.22 Type 2 diabetes mellitus with diabetic chronic kidney disease; I12.0 Hypertensive chronic kidney disease with stage 5 chronic kidney disease or end stage renal disease; N18.6 End stage renal disease; Z99.2 Dependence on renal dialysis; E78.5 Hyperlipidemia, unspecified; Z20.822 Contact with and (suspected) exposure to COVID-19
CPT/HCPCS: 71045; 80053; 83880; 84443; 84484; 85025; 87635; 93005; 94640; 96374; 99285; J2405; J7613

== ENCOUNTER 2022-07-25 04:59 | Emergency (ER) | payer MEDICARE, MEDICAID, SELFPAY ==
[2022-07-25] VITALS (40 sets, daily range): BP systolic 141–178; BP diastolic 84–103; PULSE 85–104; RESP 12–24; O2SAT 96–100
[2022-07-25] MEDS: propofol 10 mg/mL SDV 20 mL 40 MG IVP (05:01)
[2022-07-25] MEDS: vecuronium 10 mg SDV IVP (05:09)
[2022-07-25] MEDS: etomidate 2 mg/mL INJ SDV 10 mL 20 MG IVP (05:09)
--- NOTE | 2022-07-25 05:13 | XRR_ITS ---
PROCEDURE INFORMATION: Exam: XR Chest Exam date and time: 07/25/2022 5:19 AM Age: 52 years old Clinical indication: Device placement; Ett placement (vent status); Patient HX: Central line, et tube and og placement; Additional info: Cardiac arrest TECHNIQUE: Imaging protocol: Radiologic exam of the chest. Views: 1 view. COMPARISON: CR (CHEST, ) 24/07/2022 20:36 FINDINGS: Tubes, catheters and devices: ETT is present, tip is about 3 cm above alonzo. New right IJ line and NGT in place. Lungs: Hazy areas of diffuse interstitial infiltrates again seen. These may be due to edema and/or infection. Pleural spaces: No pneumothorax or new consolidation. Heart/Mediastinum: The heart size is stable. Bones/joints: Unremarkable. XR/XR chest 1V portable [id number] IMPRESSION: New lines and tubes in place. Overall stable chest from the prior evening.
--- NOTE | 2022-07-25 05:18 | ECG_ITS ---
[facility] Test Date: 2022-07-25 Pat Name: Mercy Payne Department: Room: Gender: Female Utility Pipe Layer: : 1970 Requested By: Ben Coreas Order Number: [id number] Mcallister MD: Su Nagy M.D. Measurements Intervals [place] Rate: 98 P: 55 [place]: 160 QRS: 42 QRSD: 106 T: 3 QT: 379 QTc: 484 Interpretive Statements SINUS RHYTHM POSSIBLE LEFT ATRIAL ENLARGEMENT [-0.1mV P-WAVE IN V1/V2] NONSPECIFIC T-WAVE ABNORMALITY Compared to ECG 07/24/2022 22:34:43 T-wave abnormality now present Electronically Signed On 07-25-2022 8:45:44 CARBON SEQUESTRATION PLANT MANAGER by Su Nagy M.D. [email or web address]/store/[id number]
[2022-07-25 05:27] LABS: Basophils # 0.1 10^3/uL (0.0-0.1); Basophils % 0.5 %; Eosinophils % 0.2 %; Hematocrit 34.7 % (37.0-47.0); Lymphocytes % 15.6 %; Mean Corpuscular HGB Conc 28.8 g/dL (30.0-36.0); Mean Corpuscular Hemoglobin 32.4 pg (28.0-34.0); Mean Corpuscular Volume 112.3 fl (81-99); Mean Platelet Volume 10.1 fL (7.4-10.4); Monocytes % 7.5 %; Neutrophils # 9.15 10^3/uL (1.8-7.7); Neutrophils % 70.1 %; Nucleated Red Blood Cells % 0.2 %; Platelet Count 210 10^3/cmm (130-400); Red Blood Count 3.09 10^6/uL (4.1-5.3); Red Cell Distribution Width 15.4 % (12.1-15.1); White Blood Count 13.1 10^3/uL (4.0-10.0)
[2022-07-25] MEDS: propofol 1,000 MG/100 ML INJ 6 MG IV (05:30)
[2022-07-25 05:48] LABS: Troponin(5th) Baseline 25 ng/L (0-10)
[2022-07-25 05:55] LABS: Magnesium 2.2 mg/dL (1.7-2.3); NT Pro B Type Natriuretic Pept 13199 pg/mL (0-125)
[2022-07-25 06:03] LABS: Phosphorus 10.8 mg/dL (2.5-4.5); Slide Review Slide Review Perform
--- NOTE | 2022-07-25 06:22 | W.ED.CPR ---
HPI - CPR General: Chief Complaint: Cardiac Arrest/CPR Stated Complaint: RESP. DISTRESS Time Seen by Provider: 07/25/22 05:13 Source: family and EMS History of Present Illness: 52-year-old female patient who is a dialysis patient. She was seen last night with shortness of breath. She was not feeling good. She was found to have a likely pneumonia on chest x-ray. She wished to go home at that point. She had missed dialysis on Tuesday as well. She told the previous physician that she believes she could make it till Tuesday before needing dialysis. Family reports that after she got home, she took 4 tramadol pills. Sometime later, she began to complain of shortness of breath and called out for help. Her found her in respiratory distress in her chair. He called for other family members in the household to come help, and she stopped breathing soon after they entered the room. Family member felt for a pulse and did not feel 1. He did CPR in the recliner for upwards of 20 minutes before EMS arrived. On EMS arrival, she was in PEA, and 2 mg of epinephrine were given under ACLS protocol with CPR. ROSC was achieved at that point. I gel was placed for ventilation. Patient maintained pulse on the way here. complaint: stopped breathing Onset (ago): minute(s) Timing confirmed by: family member Place: home Bystander CPR performed: Yes AED applied by bystander/separations scientist: No Shock advised: No Initial findings in the field: unresponsive, alert and no pulse ROSC in the field: Yes Associated injuries: No Associated symptoms: shortness of breath Known history of: other Treatments prior to arrival: other airway device Review of Systems General: Reports: ROS unobtainable due to medical condition [facility] ED PFS: Medical History Anxiety and depression Diagnosed at the age of 17 and has been on and off medication-currently being managed by her primary care provider Cardiac arrest Reports having a myocardial infarction in August 2020 and is currently just on aspirin. She does not remember needing to take any other medication COPD (chronic obstructive pulmonary disease) Diagnosed in her early 20s and is on medication managed by her primary care provider. She states she does not have a ultrasound sonographer. Diabetes mellitus Diagnosed in 2020 and has diabetic neuropathy. This is managed by her primary care provider End stage renal disease Diagnosed in 2018 and has been on dialysis 3 times a week since then managed by cloud automation tester Dr. Stringer out of [place]. Fibromyalgia Diagnosed in her 30s and it is managed by her primary care provider GERD (gastroesophageal reflux disease) Diagnosed in her 30s-is unsure if she has had an endoscopy done Intraocular pressure increase Is on acetazolamide prescribed by Dr. Jacques and she sees him every 6 months for this No pertinent past medical history Denies DVT/PE PCP: Dr. 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 S/P laparoscopic cholecystectomy 2015 Status post insertion of dialysis catheter x 2 Had dialysis catheter/fistula surgery in 2018 and had to have it revised again Status post tubal ligation Done at the time of her third Family History Other Hypertension Physical Exam Const: GENERAL APPEARANCE: ill appearing NUTRITIONAL APPEARANCE: overweight ORIENTATION/CONSCIOUSNESS: Yes Other orientation findings (Unresponsive) HENMT: COMMON NORMALS: normocephalic and atraumatic HEAD & SCALP: normocephalic and atraumatic FACE & SINUS: normal facial exam and face symmetric NOSE: Normal nares present and No nasal polyps present MOUTH: Normal oral and palatal mucosa present Eye: COMMON NORMALS: Equal, round and reactive pupils present (Minimally reactive and equal) ALIGNMENT: Yes alignment normal PUPIL: Yes Equal, round and reactive pupils present (Minimally reactive and equal) Neck/C-Spine: COMMON NORMALS: supple Chest: CHEST: Yes Symmetrical chest wall rise Resp: EFFORT & INSPECTION: Yes stridor and Yes audible wheezes Cardio: COMMON NORMALS: regular rate and regular rhythm RATE: regular rate RHYTHM: regular rhythm GI: COMMON NORMALS: Normal to inspection, nondistended, normoactive bowel sounds present Neuro: KALPESH COMA SCALE: document GCS findings Procedures Central Line Placement Right IJ: Time Out Performed: No Patient Placed on Monitor/Pulse Ox: Yes MD Prep: mask, gown and gloves Central Line Prep: Chlorhexidine scrub Local Anesthetic: lidocaine 1% Amount of anesthesia used (mL): 3 Ultrasound Used for Placement: Yes Central Line Lumen Inserted: triple Post Procedure: sutured in place, good blood return, all ports aspirated, flushed, capped and sterile dressing applied Post Procedure X-Ray: tip of catheter in good position and no pneumothorax seen Patient Tolerated Procedure: well and no complications Complications: none Intubation Time out performed: No sedative: Etomidate Mg Given: 20 paralytic: Vecuronium Mg Given: 10 Laryngoscope: Tesfaye (4) ET Tube Size: 8 ET Tube Uncuffed: No Tube Secured Depth (cm): 24 Tube Secured Location: lips Tube Placement Confirmation: visualized tube passing through cords, equal breath sounds bilaterally and confirmation by capnometry Patient Tolerated Procedure: well and no complications Intubation Complications: none Course Vital Signs: Vital signs: Vital Signs Pulse Rate 92 07/25/22 08:55 Respiratory Rate 14 07/25/22 08:55 Blood Pressure 172/103 07/25/22 09:00 Pulse Oximetry 99 07/25/22 09:00 Fraction of Inspir ed Oxygen 40 07/25/22 07:33 MDM - Cardiac Arrest/CPR Medical Decision Making ROSC was achieved in the field. On arrival, the eye gel was pulled, and the patient was intubated under rapid sequence intubation using etomidate and vecuronium, as she was overbreathing bag valve respirations and coughing at that point. Intubation proceeded without complication. Peripheral access was difficult, so triple-lumen catheter was placed in the right IJ without complication. Chest x-ray is stable from prior, but does show tubes in appropriate positions. White blood cell count is 13 up from 11. Hemoglobin is 10. Phosphorus is 10.8. Baseline troponin is 25, was 23 prior. BNP is 13,000. I believe it was 11,000 last night. Magnesium is 2.2. Other laboratory is pending at this point this morning. The patient is sedated using fentanyl and propofol. She is given vancomycin and levofloxacin for antibiotic coverage after blood cultures. We have no ICU beds available. The patient evidently has a history at [facility] in [place]. We have spoken with them, and they are trying to arrange for potential transfer, though beds are quite tight there as well. Have spoken with [facility] again. They are graciously willing to take in transfer and will call back with a bed for their ICU. Lab Data 07/25/22 05:12 07/25/22 06:00 Radiology Impressions Chest X-Ray 07/25/22 05:13 IMPRESSION: New lines and tubes in place. Overall stable chest from the prior evening. Laboratory Results WBC 13.1 10^3/uL (4.0-10.0) H 07/25/22 05:12 RBC 3.09 10^6/uL (4.1-5.3) L 07/25/22 05:12 Hgb 10.0 g/dL (11.5-15.3) L 07/25/22 05:12 Hct 34.7 % (37.0-47.0) L 07/25/22 05:12 MCV 112.3 fl (81-99) H D 07/25/22 05:12 MCH 32.4 pg (28.0-34.0) 07/25/22 05:12 MCHC 28.8 g/dL (30.0-36.0) L D 07/25/22 05:12 RDW 15.4 % (12.1-15.1) H 07/25/22 05:12 Plt Count 210 10^3/cmm (130-400) 07/25/22 05:12 MPV 10.1 fL (7.4-10.4) 07/25/22 05:12 Neut % (Auto) 70.1 % 07/25/22 05:12 Lymph % (Auto) 15.6 % 07/25/22 05:12 [place] % (Auto) 7.5 % 07/25/22 05:12 Eos % (Auto) 0.2 % 07/25/22 05:12 Baso % (Auto) 0.5 % 07/25/22 05:12 Neut # (Auto) 9.15 10^3/uL (1.8-7.7) H 07/25/22 05:12 Lymph # (Auto) 2.0 10^3/uL (0.8-4.8) 07/25/22 05:12 [place] # (Auto) 1.0 10^3/uL (0.2-0.9) H 07/25/22 05:12 Eos # (Auto) 0.0 10^3/uL (0.0-0.8) 07/25/22 05:12 Baso # (Auto) 0.1 10^3/uL (0.0-0.1) 07/25/22 05:12 Nucleated RBC % (auto) 0.2 % 07/25/22 05:12 Nucleated RBCs # 0.0 /100WBC 07/25/22 05:12 Specimen Type Arterial 07/25/22 06:15 Sample Site Radial, left 07/25/22 06:15 ABG pH 7.27 (7.35-7.45) L 07/25/22 06:15 ABG pCO2 47.1 mmHg (35-45) H 07/25/22 06:15 ABG pO2 105.0 mmHg (80.0-100.0) H 07/25/22 06:15 ABG HCO3 21.8 mmol/L (22-26) L 07/25/22 06:15 ABG Base Excess -5.0 mmol/L (-2.0-2.0) L 07/25/22 06:15 Clint Test Pos 07/25/22 06:15 Hematocrit 33.4 % (37-47) L 07/25/22 06:15 O2 Delivery Device Vent 07/25/22 06:15 FiO2 40.0 % 07/25/22 06:15 Tidal Volume 0.40 07/25/22 05:16 PEEP 5.0 cmH20 07/25/22 05:16 Playground Director ID [email or web address] 07/25/22 06:15 Sodium 131 mmol/L (136-145) L 07/25/22 06:00 Potassium 4.1 mmol/L (3.5-5.1) 07/25/22 06:00 Chloride 85 mmol/L (98-107) L 07/25/22 06:00 Carbon Dioxide 13 mmol/L (22-29) L 07/25/22 06:00 Anion Gap 37.1 (5-19) H 07/25/22 06:00 BUN 34 mg/dL (6-20) H 07/25/22 06:00 Creatinine 9.7 mg/dL (0.5-0.9) H* 07/25/22 06:00 GFR Calculation 4.2 mL/min (90-130) L 07/25/22 06:00 Glucose 219 mg/dL (65-115) H 07/25/22 06:00 POC Glucose 178 mg/dL (70-110) H 07/25/22 05:23 Calculated Osmolality 286 mOsm/kg (285-295) 07/25/22 06:00 Lactate 3.5 mmol/L (0.5-2.2) H 07/25/22 06:00 Calcium 9.1 mg/dL (8.5-10.5) 07/25/22 06:00 Phosphorus 10.8 mg/dL (2.5-4.5) H* 07/25/22 05:12 Magnesium 2.2 mg/dL (1.7-2.3) 07/25/22 05:12 Total Bilirubin 0.4 mg/dL (0.15-1.2) 07/25/22 06:00 AST 40 U/L (0-32) H 07/25/22 06:00 ALT 36 U/L (0-33) H 07/25/22 06:00 Alkaline Phosphatase 79 U/L (35-105) 07/25/22 06:00 Troponin T Baseline 25 ng/L (0-10) H 07/25/22 05:12 NT-Pro-B Natriuret Pep 52543 pg/mL (0-125) H 07/25/22 05:12 Total Protein 7.0 g/dL (6.6-8.7) 07/25/22 06:00 Albumin 3.7 g/dL (3.5-5.2) 07/25/22 06:00 Globulin 3.3 g/dL (1.3-4.6) 07/25/22 06:00 Urine Color Yellow (Yellow) 07/25/22 06:57 Urine Appearance Hazy (CLEAR) A 07/25/22 06:57 Urine pH 8 (5-7) H 07/25/22 06:57 Ur Specific Crane 1.010 (1.005-1.030) 07/25/22 06:57 Urine Protein 2+ (Negative) H 07/25/22 06:57 Urine Glucose (UA) 2+ (Normal) H 07/25/22 06:57 Urine Ketones Negative (Negative) 07/25/22 06:57 Urine Blood 3+ (Negative) H 07/25/22 06:57 Urine Nitrate Negative (Negative) 07/25/22 06:57 Urine Bilirubin Neg (Negative) 07/25/22 06:57 Prot Sulfosalicylic Acd Positive (Negative) 07/25/22 06:57 Urine Urobilinogen Norm mg/dL (Negative) 07/25/22 06:57 Ur Leukocyte Esterase Negative (Negative) 07/25/22 06:57 Urine RBC >100 /hpf (0-2) H 07/25/22 06:57 Urine WBC 0-4 /hpf (0-5) H 07/25/22 06:57 Ur Squamous Epith Cells 5-10 /hpf (0-5) H 07/25/22 06:57 Amorphous Sediment Not Reportable 07/25/22 06:57 Urine Bacteria Trace /hpf (NONE) 07/25/22 06:57 Critical Care Time Critical Care Time: Critical Care Time: Yes Total Critical Care Time: 45 Attestation: This case had a high probability of a clinically significant, sudden, or life threatening deterioration of this patient's condition which required my full and direct attention, intervention and personal management. Time is independent of any procedures performed including intubation and central line placement. Discharge Plan Discharge Patient Disposition: Xfer Short-Term Hosp Clinical Impression: ESRD on dialysis, Acute respiratory failure, Cardiac arrest Condition: Serious Referrals: Reese Griggs MD [Primary Care Provider] - Coding Level of Care Code ED Election Assistant for Chg 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
[2022-07-25 06:27] LABS: ABG PCO2 50.9 mmHg (35-45); Arterial Blood Gas Hematocrit 32.4 % (37-47); Base Excess ABG -9.6 mmol/L (-2.0-2.0); Blood Gas Allen Test Pos; Blood Gas Sample Site Radial, right; Blood Gas Sample Type Arterial; HCO3 ABG 18.7 mmol/L (22-26); Oxygen Device VENT
[2022-07-25 06:28] LABS: ABG PCO2 47.1 mmHg (35-45); ABG PH Result 7.27 (7.35-7.45); Arterial Blood Gas Hematocrit 33.4 % (37-47); Blood Gas Allen Test Pos; Blood Gas Sample Site Radial, left; Blood Gas Sample Type Arterial; HCO3 ABG 21.8 mmol/L (22-26)
[2022-07-25 06:28] LABS: ABG PH Result 7.17 (7.35-7.45)
[2022-07-25] MEDS: levofloxacin-dextrose 5 % 750 MG/150 ML PREMIX 100 MG IV (06:31)
[2022-07-25 06:37] LABS: Oxygen Device VENT
[2022-07-25] MEDS: vancomycin 1,500 MG/300 ML PIGGYBACK 200 MG IV (06:55)
--- NOTE | 2022-07-25 07:14 | ECG_ITS ---
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 Measurements Intervals [place] Rate: 86 P: 61 SD: 172 QRS: 45 QRSD: 106 T: 5 QT: 414 QTc: 495 Interpretive Statements SINUS RHYTHM POSSIBLE LEFT ATRIAL ENLARGEMENT [-0.1mV P-WAVE IN V1/V2] Compared to ECG 07/25/2022 05:18:06 T-wave abnormality no longer present Electronically Signed On 07-25-2022 9:05:44 PRODUCTION COST ESTIMATOR by Su Nagy M.D. [id number]
[2022-07-25 07:21] LABS: Lactate (Lactic Acid level) 3.5 mmol/L (0.5-2.2)
[2022-07-25 07:28] LABS: Alanine Aminotransferase 36 U/L (0-33); Albumin Level 3.7 g/dL (3.5-5.2); Alkaline Phosphatase 79 U/L (35-105); Anion Gap 37.1 (5-19); Aspartate Amino Transferase 40 U/L (0-32); Blood Urea Nitrogen 34 mg/dL (6-20); Calcium 9.1 mg/dL (8.5-10.5); Carbon Dioxide 13 mmol/L (22-29); Chloride 85 mmol/L (98-107); Globulin 3.3 g/dL (1.3-4.6); Glomerular Filtration Rate 4.2 mL/min (90-130); Glucose 219 mg/dL (65-115); Osmolality Calculated 286 mOsm/kg (285-295); Potassium 4.1 mmol/L (3.5-5.1); Sodium 131 mmol/L (136-145); Total Bilirubin 0.4 mg/dL (0.15-1.2)
[2022-07-25 07:45] LABS: Add Urine Microscopic? YES; Bilirubin Urine Neg (Negative); Blood Urine 3+ (Negative); Glucose Urine UA 2+ (Normal); Ketones Urine Negative (Negative); Leukocyte Esterase Urine Negative (Negative); Nitrate Urine Negative (Negative); Protein Urine 2+ (Negative); Sulfosalicylic Acid Urine Positive (Negative); Urine Appearance Hazy (CLEAR); Urine Color Yellow (Yellow); Urobilinogen Urine Norm (Negative); pH Urine 8 (5-7)
[2022-07-25 07:46] LABS: Add Urine Culture? Yes; Bacteria Urine TRACE /hpf; RBC Urine >100 /hpf (0-2); WBC Urine 0-4 /hpf (0-5)
--- NOTE | 2022-07-25 08:01 | PC.NURSE ---
WHILE AT BEDSIDE UPDATED PT ON FAMILY CARE.
[2022-07-25 09:32] LABS: Glucose Point of Care 178 mg/dL (70-110)
== END 2022-07-25 09:10 | disposition short-term general hospital (02) ==
PROVIDERS: Emergency Provider Emergency Medicine; PCP Family Medicine
DX: I46.9 Cardiac arrest, cause unspecified (principal); J96.00 Acute respiratory failure, unspecified whether with hypoxia or hypercapnia; E11.22 Type 2 diabetes mellitus with diabetic chronic kidney disease; N18.6 End stage renal disease; Z99.2 Dependence on renal dialysis; J44.9 Chronic obstructive pulmonary disease, unspecified
CPT/HCPCS: 31500; 36416; 36556; 36600; 51702; 71045; 80053; 81001; 82803; 82962; 83605; 83735; 83880; 84100; 84484; 85025; 87040; 87070; 87086; 87205; 93005; 94002; 94799; 96365; 96366; 96367; 99291; 99292; J1956; J2704; J3010; J3370; J3490; J7050